=== PATIENT | female | born 1965 | race Caucasian/White ===

== ENCOUNTER 2023-02-25 15:19 | Outpatient (RCR) | payer OTHER, SELFPAY | END 2023-02-25 23:59 | disposition home or self-care (01) | LOC: CRHB 15:19 | PROVIDERS: ATTENDING PHYSICIAN Internal Medicine; FAMILY PHYSICIAN Nurse Practitioner Primary Care | DX: I25.10 Atherosclerotic heart disease of native coronary artery without angina pectoris (principal); Z95.1 Presence of aortocoronary bypass graft | CPT/HCPCS: 93798 ==

== ENCOUNTER → 2023-04-23 15:02 | Outpatient (REF) | payer OTHER, SELFPAY | LOC: WDC 15:02 | PROVIDERS: ATTENDING PHYSICIAN Nurse Practitioner Primary Care | DX: Z12.31 Encounter for screening mammogram for malignant neoplasm of breast (principal) | CPT/HCPCS: 77063; 77067 ==

== ENCOUNTER → 2023-05-02 06:32 | Outpatient (REF) | payer OTHER, SELFPAY | LOC: MRI 06:32 | PROVIDERS: ATTENDING PHYSICIAN Registered Nurse Neuroscience; FAMILY PHYSICIAN Nurse Practitioner Primary Care | DX: M54.2 Cervicalgia (principal) | CPT/HCPCS: 72141 ==

== ENCOUNTER → 2023-05-31 16:05 | Outpatient (REF) | payer OTHER, SELFPAY | LOC: MRI 3T 16:05 | PROVIDERS: ATTENDING PHYSICIAN Registered Nurse Neuroscience; FAMILY PHYSICIAN Internal Medicine | DX: M86.9 Osteomyelitis, unspecified (principal) | CPT/HCPCS: 72141 ==

== ENCOUNTER 2023-07-17 14:47 | Outpatient (RCR) | payer OTHER, SELFPAY | END 2023-07-17 23:59 | disposition home or self-care (01) | LOC: RPT 14:47 | PROVIDERS: ATTENDING PHYSICIAN Registered Nurse Neuroscience; FAMILY PHYSICIAN Internal Medicine | DX: M47.12 Other spondylosis with myelopathy, cervical region (principal); R26.2 Difficulty in walking, not elsewhere classified; R53.1 Weakness; Z73.6 Limitation of activities due to disability | CPT/HCPCS: 97110; 97112; 97162 ==

== ENCOUNTER 2023-08-07 03:19 | Outpatient (RCR) | payer OTHER, SELFPAY | END 2023-08-14 23:59 | disposition home or self-care (01) | LOC: RPT 03:19 | PROVIDERS: ATTENDING PHYSICIAN Registered Nurse Neuroscience; FAMILY PHYSICIAN Internal Medicine | DX: R26.2 Difficulty in walking, not elsewhere classified (principal); R53.1 Weakness; Z73.6 Limitation of activities due to disability; M54.2 Cervicalgia; R26.89 Other abnormalities of gait and mobility | CPT/HCPCS: 97110; 97112 ==

== ENCOUNTER 2023-08-15 17:38 | Inpatient (IN) | payer OTHER, SELFPAY ==
[2023-08-15] VITALS (9 sets, daily range): BP systolic 102–139; BP diastolic 56–78; BMI 31.4; BMI 30.3
[2023-08-15 13:50] LABS: % Basophils 0.6 % (0-2); % Eosinophils 0.1 % (0-6); % Immature Granulocytes 0.6 % (0-0.5); % Monocytes 6.3 % (1.7-9.3); % Neutrophils 73.4 % (42.2-75.2); Absolute Basophils 0.1 10^3/uL (0-0.2); Absolute Immature Granulocytes 0.1 10^3/uL (0-0.05); Absolute Lymphocytes 1.9 10^3/uL (1.2-3.4); Absolute Monocytes 0.6 10^3/uL (0.1-0.6); Absolute Neutrophils 7.5 10^3/uL (1.4-6.5); Hematocrit 36.7 % (37.0-47.0); Hemoglobin 11.8 g/dL (12.0-16.0); Mean Corp Hgb Conc. 32.2 g/dL (33.0-37.0); Mean Corpuscular Volume 90.2 fL (81.0-99.0); Mean Platelet Volume 9.5 fL (7.4-10.4); Nucleated Red Blood Cells % 0 %; Platelet Count 399 10^3/uL (130-400); Red Blood Cell Count 4.07 10^6/uL (4.20-5.40); Red Cell Dist. Width 16.4 % (11.5-14.5); White Blood Cell Count 10.2 10^3/uL (4.8-10.8)
[2023-08-15 14:06] LABS: ALT (SGPT) 17 U/L (0-35); AST (SGOT) 20 U/L (14-36); Albumin 4.3 g/dl (3.5-5.0); Alkaline Phosphatase 86 U/L (38-126); Blood Urea Nitrogen 39 mg/dl (7-17); Calcium 9.5 mg/dl (8.4-10.2); Carbon Dioxide 12 mmol/L (22-30); Chloride 114 mmol/L (98-107); Glucose 97 mg/dl (70-99); Lipase 405 U/L (23-300); Potassium 3.6 mmol/L (3.5-5.1); Sodium 140 mmol/L (135-145); Total Bilirubin 0.5 mg/dl (0.2-1.3); Total Protein 7.6 g/dl (6.3-8.2); eGFR 16.59
--- NOTE | 2023-08-15 15:14 | ED.GENMED ---
History of Present Illness
<Nubia Sterling PA-C - Last Filed: 08/15/23 20:32>
General
Chief Complaint: Abdominal Symptoms
Source: patient
Exam Limitations: none
Time Seen by Provider: 08/15/23 14:46
Nursing documentation reviewed up to this point in time: agreed with
History of Present Illness
History of Present Illness:
58 y/o F with h/o PAF no longer on anticoagulant, NIDDM (controlled off meds), PE in the past
here with n/v/d
started 3 days ago with dairrhea probably 7-8 episodes daily watery foul smelling
couldn't really eat or drink regularly
then this morning started vomiting and vomited 12 times at home
last was this morning 9 am
no meds taken
denies abdominal pain, alcohol abuse, abdomianl distensino, urinary symptoms
does have h/o CKD cr has been up in the 3s but came back down to low 2's as far as she knew
no h/o pancreatitis
Past History
<Nubia Sterling PA-C - Last Filed: 08/15/23 20:32>
Past History
ED Past Medical History: HTN, NIDDM and Other ( morbid obesity, acute renal insufficiency, sciatica, heart failure, PE, A-fib, CAD)
ED Past Surgical History: Cholecystectomy and Gynecological (Hysteectomy)
Patient has exhibited threatening behavior?: No
Social History
Tobacco: Former smoker
Alcohol: None
Drug: None
Personal:
Living: with family
Employment: Employed (Desk job)
Family History
Family History: Other (Noncontributory)
Review of Systems
<WALLY Beard Last Filed: 08/15/23 20:32>
Review of Systems
Allergies reviewed?: Yes
All Other Systems: Not applicable
Phy Exam
<Nubia Sterling PA-C - Last Filed: 08/15/23 20:32>
Physical Exam
Physical Exam:
GENERAL: Alert , in no apparent distress
EYE: pupils equal and reactive
NECK: Supple
ENT: o/p clr, dry
CARDIAC: Regular rate and rhythm .
LUNGS: Clear breath sounds bilaterally, no acute respiratory distress, no wheezes/rales/rhonchi
ABDOMEN: Soft, mild left lower quad tendenress, no r/g, no cvat, normal bowel sounds
NEUROLOGICAL: Alert and oriented, no focal neuro deficits
SKIN: Warm and dry, skin intact.
Bruising left upper chest wall posterior ribs
MUSCULOSKELETAL: No edema, well perfused.
PSYCH: Normal and appropriate interaction.
Course
<Nubia Sterling PA-C - Last Filed: 08/15/23 20:32>
Orders/Labs/Results
Orders:
Orders
08/15/23 13:36
CMP [Comprehensive Metabolic Panel] Urgent
Complete Blood Count/With Diff Urgent
Lipase Urgent
08/15/23 Dinner
Clear Liquid
08/15/23 15:04
0.9% Sodium Chloride 1000 ml [Nss] 1,000 ml IV BOLUS
08/15/23 15:07
Ondansetron Injectable [Zofran] 4 mg IV NOW STA
08/15/23 15:19
Electrocardiogram (*1) Urgent
Reason for Study: Abdominal Pain
CT Chest/abd/pel Wo Iv Cont Urgent
Reason For Exam: left lateral rib bruising, no trauma
EKG- Treatment ONCE
STOOL [C difficile Antigen & Toxins] Urgent
BUSHRA Source: Feces/Stool
Specimen Description:
Stool Culture Urgent
BUSHRA Source: Feces/Stool
Specimen Description:
08/15/23 15:21
Lactic Acid Urgent
Venous Blood Gas Urgent
%Oxygen/Room Air: 21
08/15/23 16:48
Admit/Transfer Patient As Directed
Co-Sign Provider:
Level of Care: Inpatient admission
Assign to:: Telemetry
Physician / Group: Juan M
Diagnosis: IVANIA with met acidosis
Reason for Telemetry: Arrhythmia
Date to Stop Telemetry: 08/18/23
Time to Stop Telemetry: 11:00
Reason for Hospitalization: Above
Expected length of stay greater than two midnights?: Yes
ELOS- Estimated Length of Stay in days: 2
I certify the patient meets the requirements for IP care: Yes
08/15/23 16:55
Code Status As Directed
Resuscitation Status: Full Code
08/15/23 16:58
DX Deep Vein Thrombosis Video Routine
08/15/23 17:52
Urinalysis Reflex To Culture Urgent
Date Specimen was Collected: 08/15/23
Time Specimen was Collected: 15:12
Urine Microscopic Reflex Cult Urgent
Urine Culture Urgent
BUSHRA Source: U
Specimen Description:
Date Specimen was Collected: 08/15/23
Time Specimen was Collected: 15:12
08/15/23 20:00
Aspirin Low Dose EC [Aspir Low (Enteric Coated)] 81 mg PO DAILY
Bupropion(24Hr)Extended Releas [WELLBUTRIN XL (24 hour extended release)] 150 mg PO BID
Carvedilol [Coreg] 3.125 mg PO BID
Dextrose 5%/Water 1000 ml [D5w] 1,000 ml Sodium Bicarbonate 150 meq IV 100 mls/hr
Dextrose 50%-Water [Dextrose 50% Syringe] 12.5 grams IV [id number] PRN
Glucagon [GlucaGen] 1 mg IM PRN PRN
Guaifenesin [Mucinex] 600 mg PO BID
zkarzbfrwdy-jlscixqzx-yefsgmda [Trelegy Ellipta] 1 inh INH R DAILY
08/15/23 20:00
STOOL [C difficile Antigen & Toxins] Routine
BUSHRA Source: Feces/Stool
Specimen Description:
Stool Culture Routine
BUSHRA Source: Feces/Stool
Specimen Description:
Stool For WBC Routine
BUSHRA Source: Feces/Stool
Specimen Description:
Bedside Glucose Monitoring As Directed
Frequency: AC&HS
Additional Instructions:: Change to q6h if pt on TPN, tube feeding or not eating
08/15/23 22:00
Atorvastatin [Lipitor] 80 mg PO HS
Melatonin 5 mg PO HS
Trazodone [Desyrel] 100 mg PO HS
08/16/23 06:00
BMP [Basic Metabolic Panel] IN AM
CBC/With Diff [Complete Blood Count/With Diff] IN AM
Glycohemoglobin (HgbA1c) IN AM
08/16/23 07:30
Insulin Aspart Corrective Low [Novolog Flexpen-Low Resistance] See Protocol SC AC
08/16/23 08:00
Cholecalciferol (Vitamin D3) [VITAMIN D3 (cholecalciferol)] 25 mcg PO DAILY
Clopidogrel Bisulfate [Plavix] 75 mg PO DAILY
Escitalopram Oxalate [Lexapro] 5 mg PO DAILY
Famotidine [Pepcid] 20 mg PO Daily
08/16/23 12:00
Ferrous Sulfate [Feosol] 325 mg PO NOON
Multivitamin [Theragran] 1 tablet PO NOON
08/18/23 11:00
DC Protocol for Telemetry ONCE
Abnormal Lab Results
08/15/23 08/15/23
13:36 15:21
RBC 4.07 L 10^6/uL
(4.20-5.40)
Hgb 11.8 L g/dL
(12.0-16.0)
Hct 36.7 L %
(37.0-47.0)
MCHC 32.2 L g/dL
(33.0-37.0)
RDW 16.4 H %
(11.5-14.5)
Abs Immat Gran (auto) 0.1 H 10^3/uL
(0-0.05)
Absolute Neuts (auto) 7.5 H 10^3/uL
(1.4-6.5)
Immature Gran % 0.6 H %
(0-0.5)
Lymphocytes % 19.0 L %
(20.5-51.1)
VBG pH 7.13 L*
(7.32-7.43)
VBG HCO3 14.3 L mmol/L
(22-27)
Chloride 114 H mmol/L
(98-107)
Carbon Dioxide 12 L* mmol/L
(22-30)
BUN 39 H mg/dl
(7-17)
Creatinine 3.1 H mg/dL
(0.6-1.0)
Lipase 405 H U/L
(23-300)
08/15/23 13:36
08/15/23 13:36
Vital Signs
Initial and Last Documented VS:
Initial Vital Signs
Temp Pulse Resp BP Pulse Ox
98.0 F 97 16 132/78 97
08/15/23 13:29 08/15/23 13:29 08/15/23 13:29 08/15/23 13:29 08/15/23 13:29
Last Documented Vital Signs
Temp Pulse Resp BP Pulse Ox
98.0 F 81 13 125/58 100
08/15/23 13:29 08/15/23 18:45 08/15/23 18:45 08/15/23 18:00 08/15/23 18:45
Rabialt;Rogerio Antonio MD - Last Filed: 08/15/23 19:36>
Orders/Labs/Results
Orders:
Orders
08/15/23 13:36
CMP [Comprehensive Metabolic Panel] Urgent
Complete Blood Count/With Diff Urgent
Lipase Urgent
08/15/23 Dinner
Clear Liquid
08/15/23 15:04
0.9% Sodium Chloride 1000 ml [Nss] 1,000 ml IV BOLUS
08/15/23 15:07
Ondansetron Injectable [Zofran] 4 mg IV NOW STA
08/15/23 15:19
Electrocardiogram (*1) Urgent
Reason for Study: Abdominal Pain
CT Chest/abd/pel Wo Iv Cont Urgent
Reason For Exam: left lateral rib bruising, no trauma
EKG- Treatment ONCE
STOOL [C difficile Antigen & Toxins] Urgent
BUSHRA Source: Feces/Stool
Specimen Description:
Stool Culture Urgent
BUSHRA Source: Feces/Stool
Specimen Description:
08/15/23 15:21
Lactic Acid Urgent
Venous Blood Gas Urgent
%Oxygen/Room Air: 21
08/15/23 16:48
Admit/Transfer Patient As Directed
Co-Sign Provider:
Level of Care: Inpatient admission
Assign to:: Telemetry
Physician / Group: Juan M
Diagnosis: IVANIA with met acidosis
Reason for Telemetry: Arrhythmia
Date to Stop Telemetry: 08/18/23
Time to Stop Telemetry: 11:00
Reason for Hospitalization: Above
Expected length of stay greater than two midnights?: Yes
ELOS- Estimated Length of Stay in days: 2
I certify the patient meets the requirements for IP care: Yes
08/15/23 16:55
Code Status As Directed
Resuscitation Status: Full Code
08/15/23 16:58
DX Deep Vein Thrombosis Video Routine
08/15/23 17:52
Urinalysis Reflex To Culture Urgent
Date Specimen was Collected: 08/15/23
Time Specimen was Collected: 15:12
Urine Microscopic Reflex Cult Urgent
Urine Culture Urgent
BUSHRA Source: U
Specimen Description:
Date Specimen was Collected: 08/15/23
Time Specimen was Collected: 15:12
08/15/23 20:00
Aspirin Low Dose EC [Aspir Low (Enteric Coated)] 81 mg PO DAILY
Bupropion(24Hr)Extended Releas [WELLBUTRIN XL (24 hour extended release)] 150 mg PO BID
Carvedilol [Coreg] 3.125 mg PO BID
Dextrose 5%/Water 1000 ml [D5w] 1,000 ml Sodium Bicarbonate 150 meq IV 100 mls/hr
Dextrose 50%-Water [Dextrose 50% Syringe] 12.5 grams IV [id number] PRN
Glucagon [GlucaGen] 1 mg IM PRN PRN
Guaifenesin [Mucinex] 600 mg PO BID
btqfmjsbajp-zyxgyaxph-bxabyrhc [Trelegy Ellipta] 1 inh INH R DAILY
08/15/23 20:00
STOOL [C difficile Antigen & Toxins] Routine
BUSHRA Source: Feces/Stool
Specimen Description:
Stool Culture Routine
BUSHRA Source: Feces/Stool
Specimen Description:
Stool For WBC Routine
BUSHRA Source: Feces/Stool
Specimen Description:
Bedside Glucose Monitoring As Directed
Frequency: AC&HS
Additional Instructions:: Change to q6h if pt on TPN, tube feeding or not eating
08/15/23 22:00
Atorvastatin [Lipitor] 80 mg PO HS
Melatonin 5 mg PO HS
Trazodone [Desyrel] 100 mg PO HS
08/16/23 06:00
BMP [Basic Metabolic Panel] IN AM
CBC/With Diff [Complete Blood Count/With Diff] IN AM
Glycohemoglobin (HgbA1c) IN AM
08/16/23 07:30
Insulin Aspart Corrective Low [Novolog Flexpen-Low Resistance] See Protocol SC AC
08/16/23 08:00
Cholecalciferol (Vitamin D3) [VITAMIN D3 (cholecalciferol)] 25 mcg PO DAILY
Clopidogrel Bisulfate [Plavix] 75 mg PO DAILY
Escitalopram Oxalate [Lexapro] 5 mg PO DAILY
Famotidine [Pepcid] 20 mg PO Daily
08/16/23 12:00
Ferrous Sulfate [Feosol] 325 mg PO NOON
Multivitamin [Theragran] 1 tablet PO NOON
08/18/23 11:00
DC Protocol for Telemetry ONCE
Abnormal Lab Results
08/15/23 08/15/23
13:36 15:21
RBC 4.07 L 10^6/uL
(4.20-5.40)
Hgb 11.8 L g/dL
(12.0-16.0)
Hct 36.7 L %
(37.0-47.0)
MCHC 32.2 L g/dL
(33.0-37.0)
RDW 16.4 H %
(11.5-14.5)
Abs Immat Gran (auto) 0.1 H 10^3/uL
(0-0.05)
Absolute Neuts (auto) 7.5 H 10^3/uL
(1.4-6.5)
Immature Gran % 0.6 H %
(0-0.5)
Lymphocytes % 19.0 L %
(20.5-51.1)
VBG pH 7.13 L*
(7.32-7.43)
VBG HCO3 14.3 L mmol/L
(22-27)
Chloride 114 H mmol/L
(98-107)
Carbon Dioxide 12 L* mmol/L
(22-30)
BUN 39 H mg/dl
(7-17)
Creatinine 3.1 H mg/dL
(0.6-1.0)
Lipase 405 H U/L
(23-300)
08/15/23 13:36
08/15/23 13:36
Vital Signs
Initial and Last Documented VS:
Initial Vital Signs
Temp Pulse Resp BP Pulse Ox
98.0 F 97 16 132/78 97
08/15/23 13:29 08/15/23 13:29 08/15/23 13:29 08/15/23 13:29 08/15/23 13:29
Last Documented Vital Signs
Temp Pulse Resp BP Pulse Ox
98.0 F 81 13 125/58 100
08/15/23 13:29 08/15/23 18:45 08/15/23 18:45 08/15/23 18:00 08/15/23 18:45
<Nubia Sterling PA-C - Last Filed: 08/15/23 20:32>
MDM/Problems Addressed
Differential Diagnosis Includes:
Gastroenteritis, metabolic acidosis, C. difficile, IVANIA
MDM/Problems Addressed:
58-year-old female with a history of diet-controlled diabetes, former A-fib/paroxysmal A-fib not anticoagulated with diarrhea for several days followed by vomiting today. She has had very little p.o. intake. She feels generally weak. On exam she
has no abdominal tenderness or complaints. She had had no diarrhea today and up until being in the emergency department. We were unable to obtain a sample. Stool studies were sent. She has an IVANIA with a creatinine of 3.2 from her baseline in the
twos. She also has a metabolic acidosis with a pH of 7.1 and a low bicarb. I discussed the case with ED attending who felt that we could hold on bicarb and her fluids at this point and just treat with IV normal saline. Patient had imaging of her
chest abdomen pelvis, she had some bruising on her left ribs which she did not recall trauma for but this was negative. She also had no significant findings on her abdominal CT. Will admit to the hospitalist
<WALLY Beard Last Filed: 08/15/23 20:32>
*Critical Care Note
Total Time (30-74mins, 75-104mins- exclusive of procedures): Not Applicable
ED Attending Note
<Nubia Sterling PA-C - Last Filed: 08/15/23 20:32>
-
Portions of this chart may have been created with voice recognition software.� Occasional wrong word or��sound alike� substitutions may have occurred due to the inherent limitations of voice recognition software.
<Rogerio Antonio MD - Last Filed: 08/15/23 19:36>
ED Attending Note
Patient seen and examined by attending physician: Yes
ED Attending Note:
Patient presents to ED secondary to persistent nausea, vomiting, and nonbloody diarrhea over the past 4 days, along with decreased appetite. Patient denies abdominal pain. Denies fever or chills. Denies coughing. Denies recent travel. Denies
sick contact. However, patient does report attending gathering where they were approximate 150 people, 1 day prior to onset of her symptoms. Patient is wondering whether or not she may have 'caught something'.
Physical Exam
General: no apparent distress, not acutely ill
Neck: supple. no meningeal signs. normal psoterior pharynx
Heart: s1/s2 regular rate and rhythm, no murmur. equal radial pulses.
Lungs: no acute respiratory distress. clear bilaterally
Abdomen: normal bowel sounds. not tender
Neuro: alert and oriented. no focal neurological deficits
Skin: no rash
Psychiatric: well kept. interactive and cooperative
Extremities: no edema. no calf tenderness.
History and exam consistent with likely moderate dehydration, secondary to persistent vomiting and diarrhea. Significant metabolic acidosis noted. Patient will be admitted for further evaluation treatment, including IV hydration. Patient
otherwise remains afebrile, hemodynamically stable, and mentally competent. Will hold off administering sodium bicarb, as underlying dehydration need to be addressed first.
Discharge Plan
Departure
Patient Disposition: Admit
Date of Disposition: 08/15/23
Time of Disposition: 15:36
Admit to: Telemetry
Presentation/result/management discussed w/ accepting MD/DO: Hospitalist
Condition: Fair
Covid-19: Not Applicable
Discharge Problem:
Gastroenteritis, Acidemia
Interventions
Interventions:
*Risk Screen - Suicide Last Done: 08/15/23 14:35
*General Assessment Last Done: 08/15/23 13:29
*Neglect/Abuse Screening Last Done: 08/15/23 14:35
*ED COVID-19 Vaccine History Last Done: 08/15/23 13:29
*Nursing Disposition Last Done: 08/15/23 20:21
BY-[facility]hiwre-Ajemooxpyp Assessment Last Done: 08/15/23 14:35
Discharge Date and Time
Discharge Date/Time: 08/15/23 20:22
[2023-08-15 15:26] LABS: Venous Blood Gas B.E. -14.3 mmol/L (-4 to +4); Venous Blood Gas HCO3 14.3 mmol/L (22-27); Venous Blood Gas pCO2 43 mmHg (35-48); Venous Blood Gas pO2 37 mmHg (30-50)
[2023-08-15 15:28] LABS: Venous Blood Gas pH 7.13 (7.32-7.43)
[2023-08-15] MEDS: ZOFRAN 4 MG IV (15:40)
[2023-08-15 15:42] LABS: Lactic Acid 0.7 mmol/L (0.7-2.0)
[2023-08-15] MEDS: NSS 1000 IV (15:42)
--- NOTE | 2023-08-15 16:59 | HPS.HSE ---
Family Physician
-
Family Physician: Beverly Art
Chief Complaint
-
Persistent diarrhea and weakness.
History of Present Illness
Patient is a 58 years old female with extensive past medical history including CKD stage IV with baseline creatinine around 2, chronic metabolic acidosis, coronary artery disease with bypass surgery October 2022 type 2 diabetes controlled with
diet who presents to the emergency room with diarrhea and generalized fatigue and weakness. Patient describes 2-3 loose bowel movements a day. She denies any hematochezia. She admits to intermittent nausea, although with no emesis. She denies
any abdominal pain, fever, sick contacts, recent travel, recent antibiotics administration or hospitalization.
While in emergency room patient is afebrile and hemodynamically stable
Additional laboratory workup revealed acute on chronic kidney injury with worsening of metabolic acidosis.
Medical History
Past Medical History
Past Medical History: Reports CAD, HTN, Hypercholesterolemia, NIDDM and Other (Chronic kidney disease stage IV)
Past Surgical History: Reports Cardiac and Orthopedic
Social History
Tobacco: Non-smoker
Alcohol: None
Drug: None
Personal:
Living: With Family
Family History
Family History: Not pertinent
Allergies / Home Medications
Allergies reflects when Allergies were last updated in [facility].
Home Medications with original date entered in [facility]
Allergy/Medication List:
Allergies
Allergy/AdvReac Type Severity Reaction Status Date / Time
cephalexin Allergy Unknown Swelling Verified 08/15/23 13:32
lisinopril Allergy Unknown Verified 08/15/23 13:32
metformin AdvReac GI UPSET Verified 08/15/23 13:32
Home Medications
ascorbic acid (vitamin C) 500 mg tablet (Vitamin C) 500 mg PO DAILY Supplement 02/18/21
ferrous sulfate 325 mg (65 mg iron) tablet (FeroSul) 325 mg PO NOON Supplement 02/18/21
carvedilol 3.125 mg tablet 3.125 mg PO BID 09/20/22
melatonin 5 mg tablet 5 mg PO HS 11/19/22
aspirin 81 mg tablet,delayed release 81 mg PO DAILY #90 tabs 11/27/22
atorvastatin 80 mg tablet 80 mg PO HS #90 tabs 11/27/22
clopidogrel 75 mg tablet 75 mg PO DAILY #90 tabs 11/27/22
furosemide 40 mg tablet 40 mg PO DAILY #90 tabs 11/27/22
guaifenesin 600 mg tablet, extended release 12 hr 600 mg PO BID #180 tabs 11/27/22
multivitamin with folic acid 400 mcg tablet (Tab-A-Prashant) 1 tab PO NOON #90 tabs 11/27/22
cholecalciferol (vitamin D3) 25 mcg (1,000 unit) tablet (Vitamin D3) 25 mcg PO DAILY #90 tabs 11/28/22
famotidine 20 mg tablet 20 mg PO Daily #90 tabs 11/28/22
azithromycin 250 mg tablet 250 mg PO Q48H 08/15/23
benzonatate 100 mg capsule 100 mg PO BIDPRN PRN cough 08/15/23
bupropion HCl 150 mg 24 hr tablet, extended release (Wellbutrin XL) 150 mg PO BID 08/15/23
escitalopram oxalate 5 mg tablet (Lexapro) 5 mg PO DAILY 08/15/23
finerenone 10 mg tablet (Kerendia) 10 mg PO DAILY 08/15/23
fluticasone fur. 100 mcg-umeclid 62.5 mcg-vilant 25 mcg inhalat.powder (Trelegy Ellipta) 1 inh inhalation R DAILY 08/15/23
sodium bicarbonate 325 mg tablet 325 mg PO DAILY 08/15/23
trazodone 50 mg tablet 100 mg PO HS 08/15/23
Review of Systems
-
A 12 point ROS was completed and negative except as noted: Yes
Abdomen/GI: Reports See HPI
Physical Exam
Vital Signs
Vital Signs
Temp Pulse Resp BP Pulse Ox
98.0 F 83 14 139/69 99
08/15/23 13:29 08/15/23 15:30 08/15/23 15:30 08/15/23 15:00 08/15/23 15:00
Physical Exam
General: Well Developed, Well Nourished and No Apparent Distress
HEENT: NormoCephalic, Moist mucous membranes and Atraumatic
Respiratory: Clear
Cardiac: S1/S2 and Regular Rhythm; No Murmur or Rub
GI: Soft, Non Tender, Non Distended and Normal Bowel Sounds; No Organomegaly
Rectal: Deferred by Provider
Musculoskeletal: No Clubbing, No Cyanosis and No Edema
Skin: No Rash
Neuro: Nonfocal/grossly intact
Laboratory Results
-
08/15/23 13:36
08/15/23 13:36
Laboratory Results
Lactic Acid 0.7 mmol/L (0.7-2.0) 08/15/23 15:21
Total Bilirubin 0.5 mg/dl (0.2-1.3) 08/15/23 13:36
AST 20 U/L (14-36) 08/15/23 13:36
ALT 17 U/L (0-35) 08/15/23 13:36
Alkaline Phosphatase 86 U/L (38-126) 08/15/23 13:36
Lipase 405 U/L (23-300) H 08/15/23 13:36
Data Reviewed
-
Lab Data: Labs Reviewed by me
Impression/Plan
-
IMPRESSION:
58 years old female with history of CKD stage IV baseline creatinine 1.7�2, chronic metabolic acidosis presents with acute onset of diarrhea and found to have acute on chronic kidney injury and worsening metabolic acidosis
IVANIA on CKD stage IV.
Worsening metabolic acidosis.
Acute onset of diarrhea, suspected viral gastroenteritis
Conditions prior to admission:
CKD stage IV baseline creatinine 1.8-2
Chronic metabolic acidosis on oral bicarb at home.
CAD.
� Status post CABG x 4 at [facility] 11/10
Status post cervical spine surgery at [facility] .
Nonischemic cardiomyopathy with preserved/recovered EF/mild to moderate AR.
Anemia of chronic disease
Essential hypertension
Dyslipidemia
Diabetes mellitus type 2 currently diet controlled.
COPD without exacerbation.
History of DVT, currently not on anticoagulation
Albuminuria.
Anxiety/depression.
PLAN:
Acute on chronic kidney injury with creatinine up to 3.1
Worsening of increased anion gap/normal gap metabolic acidosis most likely combination of GI losses with diarrhea as well as IVANIA and bicarb regeneration
Bladder scan, although less likely retention.
Start IV fluids with bicarbonate
Avoid hypotension.
Hold Lasix and Kerendia for now
Consider nephrology consultation
Acute onset of diarrhea with nausea
Patient denies any hematochezia.
Afebrile.
Benign abdominal examination.
Suspect acute viral gastroenteritis less likely bacterial infection, although possible.
CT scan of the abdomen and pelvis pending.
Full liquid diet.
Stool for C. difficile/stool culture/stool for WBC.
If persistent consider gastroenterology consultation and additional workup
CAD/hypertension/dyslipidemia
Status post CABG x 4 11/10
Continue DAPT with aspirin and Plavix
Continue statin
Continue Coreg, although monitor blood pressure closely avoiding hypotension
Type 2 diabetes currently controlled by diet
Update hemoglobin A1c.
Basal bolus protocol.
Carbohydrate controlled diet, currently on full liquid diet given above issues
Anxiety/depression
Continue trazodone, Wellbutrin
DVT prophylaxis: Heparin
Full code.
[2023-08-15 17:58] LABS: Urine Albumin Trace (Neg - Trace); Urine Bilirubin Negative (Negative); Urine Character Clear (Clear); Urine Color Yellow; Urine Glucose Negative (Negative); Urine Ketone Negative (Negative); Urine Leukocyte 1+ (Negative); Urine Nitrite Negative (Negative); Urine Occult Blood Trace (Negative); Urine Urobilinogen Negative (Neg - 1+)
[2023-08-15 18:07] LABS: Urine Red Blood Cell 0-2 /HPF (0-2)
[2023-08-15 18:08] LABS: Urine Bacteria Few (Negative)
[2023-08-15] MEDS: ASPIR LOW (ENTERIC COATED) 81 MG PO (20:50)
[2023-08-15] MEDS: LIPITOR 80 MG PO (20:50)
[2023-08-15] MEDS: COREG 3.125 MG PO (20:50)
[2023-08-15] MEDS: MUCINEX 600 MG PO (20:50)
[2023-08-15] MEDS: HEPARIN 5000 UNITS SC (20:51)
[2023-08-15] MEDS: DESYREL 100 MG PO (20:52)
[2023-08-15] MEDS: SODIUM BICARBONATE 1150 MEQ IV (21:30)
--- NOTE | 2023-08-15 21:30 | PTCARENOTE ---
no delay received. aa0x3. pt ambulated from stretcher to bed in rm 331 w/o issue. d5w/ bicarb @100cc/hr. vss. nsr. call hernandez in reach. will monitor.
[2023-08-15] MEDS: WELLBUTRIN XL (24 hour extended release) PO (22:04)
[2023-08-15] MEDS: WELLBUTRIN XL (24 hour extended release) 150 MG PO (22:58)
[2023-08-15] MEDS: MELATONIN 5 MG PO (22:58)
[2023-08-16] VITALS (7 sets, daily range): BP systolic 110–124; BP diastolic 53–66; BMI 30.3
--- NOTE | 2023-08-16 02:00 | PTCARENOTE ---
pt had two second pause. hr down to 38. pt aaox3 and asymptomatic. social insurance analyst aware. ekg obtained. hr back into 70's in nsr. will monitor.
[2023-08-16 06:32] LABS: % Basophils 0.4 % (0-2); % Eosinophils 1.3 % (0-6); % Immature Granulocytes 0.7 % (0-0.5); % Lymphocytes 25.5 % (20.5-51.1); % Monocytes 10.5 % (1.7-9.3); % Neutrophils 61.6 % (42.2-75.2); Absolute Eosinophils 0.1 10^3/uL (0-0.7); Absolute Immature Granulocytes 0.1 10^3/uL (0-0.05); Absolute Lymphocytes 1.9 10^3/uL (1.2-3.4); Absolute Monocytes 0.8 10^3/uL (0.1-0.6); Absolute Neutrophils 4.6 10^3/uL (1.4-6.5); Hematocrit 32.4 % (37.0-47.0); Hemoglobin 10.6 g/dL (12.0-16.0); Mean Corp Hgb Conc. 32.7 g/dL (33.0-37.0); Mean Corpuscular Volume 85.5 fL (81.0-99.0); Mean Platelet Volume 9.6 fL (7.4-10.4); Nucleated Red Blood Cells % 0 %; Platelet Count 325 10^3/uL (130-400); Red Blood Cell Count 3.79 10^6/uL (4.20-5.40); Red Cell Dist. Width 16.1 % (11.5-14.5); White Blood Cell Count 7.4 10^3/uL (4.8-10.8)
[2023-08-16 06:54] LABS: Blood Urea Nitrogen 37 mg/dl (7-17); Calcium 9.1 mg/dl (8.4-10.2); Carbon Dioxide 16 mmol/L (22-30); Chloride 114 mmol/L (98-107); Estimated Creatinine Clearance 20 ml/min; Glucose 95 mg/dl (70-99); Potassium 2.7 mmol/L (3.5-5.1); Sodium 140 mmol/L (135-145); eGFR 18.75
[2023-08-16 08:58] LABS: Glucose - Point of Care 112 mg/dl (70-99)
[2023-08-16] MEDS: COREG 3.125 MG PO ×2 (09:00→20:38)
[2023-08-16] MEDS: ASPIR LOW (ENTERIC COATED) 81 MG PO (09:00)
[2023-08-16] MEDS: MUCINEX 600 MG PO ×2 (09:00→20:38)
[2023-08-16] MEDS: WELLBUTRIN XL (24 hour extended release) 150 MG PO ×2 (09:00→20:39)
[2023-08-16] MEDS: NOVOLOG FLEXPEN-LOW RESISTANCE SC (09:00)
[2023-08-16] MEDS: LEXAPRO 5 MG PO (09:00)
[2023-08-16] MEDS: PLAVIX 75 MG PO (09:04)
[2023-08-16] MEDS: HEPARIN 5000 UNITS SC ×2 (09:04→20:39)
[2023-08-16] MEDS: VITAMIN D3 (cholecalciferol) 25 MCG PO (09:05)
[2023-08-16] MEDS: SODIUM BICARBONATE 1150 MEQ IV ×2 (09:39→21:51)
[2023-08-16] MEDS: KCL 40 MEQ PO (10:08)
[2023-08-16] MEDS: KCL 270 MEQ IV (10:49)
[2023-08-16 10:54] LABS: Glycohemoglobin (HgbA1c) 5.8 % (4.0-5.6)
[2023-08-16] MEDS: FEOSOL 325 MG PO (11:30)
[2023-08-16] MEDS: THERAGRAN 1 TABLET PO (11:33)
[2023-08-16 12:14] LABS: Glucose - Point of Care 183 mg/dl (70-99)
--- NOTE | 2023-08-16 12:38 | W.CON.NEPH ---
Consultation
-
Date/Time Consultation Requested: August 16, 2023 11 AM
Date/Time Consultation Performed: August 16, 2023 12:30 PM
Requesting Provider: Dr. Mcgowan
Performing Provider: Dr. Rose
Reason for Consultation: Acute kidney injury, metabolic acidosis, hypokalemia
Medical History
-
Chief Complaint: Nausea vomiting diarrhea
History of Present Illness:
This is a 58-year-old female who is well-known to our office and follows with Dr. Arambula. She was last seen in this month. She has known chronic kidney disease stage IV with baseline creatinine around 2.0. She does have metabolic acidosis and
x-ray bicarbonate as outpatient. She has diabetes mellitus type 2 though currently not on medications but does take Kerendia for diabetic kidney disease. She has known coronary disease on antiplatelet therapy. She is on a multidrug regimen for
hypertension which is controlled. Beginning on Saturday she began developing voluminous diarrhea 4-5 times per day. On this had improved but then she began with vomiting 20 times per day. Because of this she came to the emergency room.
There is no blood in the vomiting or diarrhea and she has no abdominal pain. At the time of admission she was noted to have acute kidney injury with a creatinine of 3.1 and developed hypokalemia. She also has significant metabolic acidosis.
Past Medical History
Coronary disease
Hypertension
CKD 4, 2.1 baseline
Hyperlipidemia
Diabetes mellitus type 2 CABG
Asthma
DVT
Depression/anxiety
IVANIA with dialysis in the past
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
Aortic regurgitation
Social History
Tobacco: Former Smoker
Alcohol: None
Family History
Family History: Not Pertinent
Allergies / Home Medications
Allergy/AdvReac Type Severity Reaction Status Date / Time
cephalexin Allergy Swelling Verified 08/15/23 20:21
lisinopril Allergy Unknown Verified 08/15/23 13:32
metformin Allergy GI UPSET Verified 08/15/23 20:21
�Medication �Instructions �Recorded �Confirmed �Type
ascorbic acid (vitamin C) 500 mg 500 mg PO DAILY Supplement 02/18/21 08/15/23 History
tablet (Vitamin C)
ferrous sulfate 325 mg (65 mg 325 mg PO NOON Supplement 02/18/21 08/15/23 History
iron) tablet (FeroSul)
carvedilol 3.125 mg tablet 3.125 mg PO BID Heart 09/20/22 08/15/23 History
Disease/Condition
melatonin 5 mg tablet 5 mg PO HS Sleep 11/19/22 08/15/23 History
aspirin 81 mg tablet,delayed 81 mg PO DAILY #90 tabs 11/27/22 08/15/23 Rx
release
atorvastatin 80 mg tablet 80 mg PO HS #90 tabs 11/27/22 08/15/23 Rx
clopidogrel 75 mg tablet 75 mg PO DAILY #90 tabs 11/27/22 08/15/23 Rx
furosemide 40 mg tablet 40 mg PO DAILY #90 tabs 11/27/22 08/15/23 Rx
guaifenesin 600 mg tablet, 600 mg PO BID #180 tabs 11/27/22 08/15/23 Rx
extended release 12 hr
multivitamin with folic acid 400 1 tab PO NOON #90 tabs 11/27/22 08/15/23 Rx
mcg tablet (Tab-A-Prashant)
cholecalciferol (vitamin D3) 25 25 mcg PO DAILY #90 tabs 11/28/22 08/15/23 Rx
mcg (1,000 unit) tablet (Vitamin
D3)
famotidine 20 mg tablet 20 mg PO Daily #90 tabs 11/28/22 08/15/23 Rx
azithromycin 250 mg tablet 250 mg PO Q48H Infection 08/15/23 08/15/23 History
benzonatate 100 mg capsule 100 mg PO BIDPRN PRN cough 08/15/23 08/15/23 History
bupropion HCl 150 mg 24 hr tablet, 150 mg PO BID Depression 08/15/23 08/15/23 History
extended release (Wellbutrin XL)
escitalopram oxalate 5 mg tablet 5 mg PO DAILY Depression 08/15/23 08/15/23 History
(Lexapro)
finerenone 10 mg tablet (Kerendia) 10 mg PO DAILY Kidney and diabetes 08/15/23 08/15/23 History
fluticasone fur. 100 mcg-umeclid 1 inh inhalation R DAILY 08/15/23 08/15/23 History
62.5 mcg-vilant 25 mcg Lung/Breathing Issues
inhalat.powder (Trelegy Ellipta)
sodium bicarbonate 325 mg tablet 325 mg PO DAILY Electrolyte 08/15/23 08/15/23 History
Repletion
trazodone 50 mg tablet 100 mg PO HS Sleep 08/15/23 08/15/23 History
Review of Systems
-
Diarrhea improved, vomiting improved. No abdominal pain.
All other systems: Negative unless noted
Physical Exam
Vital Signs
Vital Signs
Temp Pulse Resp BP Pulse Ox
98.4 F 79 16 119/60 99
08/16/23 07:00 08/16/23 09:00 08/16/23 07:00 08/16/23 09:00 08/16/23 07:00
Lab Results
WBC 7.4 10^3/uL (4.8-10.8) 08/16/23 05:50
RBC 3.79 10^6/uL (4.20-5.40) L 08/16/23 05:50
Hgb 10.6 g/dL (12.0-16.0) L 08/16/23 05:50
Hct 32.4 % (37.0-47.0) L 08/16/23 05:50
Plt Count 325 10^3/uL (130-400) 08/16/23 05:50
Sodium 140 mmol/L (135-145) 08/16/23 05:50
Potassium 2.7 mmol/L (3.5-5.1) L* 08/16/23 05:50
Chloride 114 mmol/L (98-107) H 08/16/23 05:50
Carbon Dioxide 16 mmol/L (22-30) L 08/16/23 05:50
BUN 37 mg/dl (7-17) H 08/16/23 05:50
Creatinine 2.8 mg/dL (0.6-1.0) H 08/16/23 05:50
eGFR 18.75 08/16/23 05:50
Glucose 95 mg/dl (70-99) 08/16/23 05:50
Calcium 9.1 mg/dl (8.4-10.2) 08/16/23 05:50
Albumin 4.3 g/dl (3.5-5.0) 08/15/23 13:36
Physical Exam
Patient is awake alert oriented and in no distress. Mood and affect were pleasant, insight and judgment were good. Pupils are equal round and reactive to light, extraocular movements are intact, sclera were anicteric. Hearing was normal, ears and
nose are intact. Oropharynx was clear. Neck was supple with trachea midline and no thyromegaly. Heart was regular rate and rhythm without rubs. Lower extremities without edema. Lungs were clear to auscultation bilaterally and with normal
excursion. Abdomen was soft, nontender, with normal active bowel sounds, and no hepatosplenomegaly. Skin was without rash and with normal turgor.
Data Reviewed
-
CT Scan: Report Reviewed by me (CT of the chest abdomen and pelvis without contrast on August 15, 2023 shows bronchiolitis, no acute disease in the abdomen)
Medical Tests (Nuc Med, Echo etc): Image Personally Visualized and interpreted (EKG on August 16, 2023 by my read shows normal sinus rhythm)
Labs: Labs Reviewed by me (Sodium 140, potassium 2.7, bicarbonate 16, BUN 37, creatinine 2.8, A1c 5.8, WBC 7.4, hemoglobin 10.6)
Assessment/Plan
-
Assessment
Acute kidney injury
CKD 4 (2.1)
Metabolic acidosis
Hypertension
Nausea vomiting diarrhea
Aortic regurgitation
Diabetes mellitus type 2
Hypokalemia
Plan
IV fluids with bicarbonate
Continue oral bicarbonate
Aggressive potassium replacement
Follow BMP
Follow lipase
[2023-08-16] MEDS: NOVOLOG FLEXPEN-LOW RESISTANCE 1 UNITS SC (14:50)
--- NOTE | 2023-08-16 15:25 | W.PN.HOSP.TC ---
Today's Communication/Plan
-
Renal function and metabolic acidosis improving with IV hydration and bicarbonate.
Continue IV fluids for another 24 hours
Replete potassium
Advance diet
Follow rest of the stool cultures
Assessment / Plan
Assessment / Plan
IMPRESSION:
58 years old female with history of CKD stage IV baseline creatinine 1.7�2, chronic metabolic acidosis presents with acute onset of diarrhea and found to have acute on chronic kidney injury and worsening metabolic acidosis
IVANIA on CKD stage IV.
Worsening metabolic acidosis.
Hypokalemia
Acute onset of diarrhea, suspected viral gastroenteritis
Conditions prior to admission:
CKD stage IV baseline creatinine 1.8-2
Chronic metabolic acidosis on oral bicarb at home.
CAD.
� Status post CABG x 4 at [facility] 11/10
Status post cervical spine surgery at [facility] .
Nonischemic cardiomyopathy with preserved/recovered EF/mild to moderate AR.
Anemia of chronic disease
Essential hypertension
Dyslipidemia
Diabetes mellitus type 2 currently diet controlled.
COPD without exacerbation.
History of DVT, currently not on anticoagulation
Albuminuria.
Anxiety/depression.
PLAN:
Acute on chronic kidney injury with creatinine up to 3.1
Worsening of increased anion gap/normal gap metabolic acidosis most likely combination of GI losses with diarrhea as well as IVANIA and bicarb regeneration
Renal function improved with IV fluids and bicarbonate
Continue IV bicarbonate for another 24 hours
Replete potassium
Avoid hypotension.
Hold Lasix and Kerendia for now
Acute onset of diarrhea with nausea
Patient denies any hematochezia.
Afebrile.
Benign abdominal examination.
Suspect acute viral gastroenteritis less likely bacterial infection, although possible.
CT scan of the abdomen and pelvis without acute abnormalities
Stool negative for C. difficile and norovirus.
Cultures pending
Monitor off antibiotics
With improved diarrhea, advance to regular diet.
CAD/hypertension/dyslipidemia
Status post CABG x 4 11/10
Continue DAPT with aspirin and Plavix
Continue statin
Continue Coreg, although monitor blood pressure closely avoiding hypotension
Type 2 diabetes currently controlled by diet
Update hemoglobin A1c.
Basal bolus protocol.
Carbohydrate controlled diet, currently on full liquid diet given above issues
Anxiety/depression
Continue trazodone, Wellbutrin
DVT prophylaxis: Heparin
Full code.
Anticipated Discharge: 24 - 48 hours
Subjective/Interval History
-
Date of Service: August 16, 2023
Objective Data
-
Labs:
Laboratory Results
08/16/23
05:50
WBC 7.4
Hgb 10.6 L
Hct 32.4 L
Plt Count 325
Sodium 140
Potassium 2.7 L*
Chloride 114 H
Carbon Dioxide 16 L
BUN 37 H
Creatinine 2.8 H
Glucose 95
Calcium 9.1
Vital Signs:
Vital Signs
Temp Pulse Resp BP Pulse Ox
98.5 F 82 16 113/66 99
08/16/23 11:30 08/16/23 11:30 08/16/23 11:30 08/16/23 11:30 08/16/23 11:30
I&O
08/15/23 08/16/23 08/17/23
06:59 06:59 06:59
Intake Total 1000 / 1000
Balance 1000 / 1000
Physical Exam
-
General: Well Developed and No Apparent Distress
HEENT: Normocephalic, Atraumatic and Moist Mucous Membranes
Respiratory: Clear to Auscultation
Cardiac: Regular Rhythm and S1/S2; Negative Murmur, Rub or Gallop
GI: Soft, Nontender, Nondistended and Normal Bowel Sounds; Negative Organomegaly
Rectal: Deferred by Provider
Musculoskeletal: No Clubbing, No Cyanosis and No Edema
Skin: Negative Rash
Neuro: Nonfocal/Grossly Intact
[2023-08-16 17:45] LABS: Glucose - Point of Care 200 mg/dl (70-99)
[2023-08-16] MEDS: NOVOLOG FLEXPEN-LOW RESISTANCE 2 UNITS SC (18:06)
[2023-08-16 21:22] LABS: Glucose - Point of Care 153 mg/dl (70-99)
[2023-08-16] MEDS: KCL 20 MEQ PO (21:52)
[2023-08-16] MEDS: DESYREL 100 MG PO (21:52)
[2023-08-16] MEDS: LIPITOR 80 MG PO (21:52)
[2023-08-16] MEDS: MELATONIN 5 MG PO (21:52)
[2023-08-17 02:46] VITALS: BP 110/61
[2023-08-17] MEDS: ROBITUSSIN 100 MG PO (03:36)
[2023-08-17 06:00] VITALS: BMI 29.4
[2023-08-17 07:00] VITALS: BP 130/60
[2023-08-17 07:18] LABS: Blood Urea Nitrogen 38 mg/dl (7-17); Calcium 8.7 mg/dl (8.4-10.2); Carbon Dioxide 30 mmol/L (22-30); Chloride 105 mmol/L (98-107); Estimated Creatinine Clearance 23 ml/min; Glucose 120 mg/dl (70-99); Magnesium 1.9 mg/dl (1.6-2.3); Potassium 3.3 mmol/L (3.5-5.1); Sodium 140 mmol/L (135-145); eGFR 22.56
[2023-08-17] MEDS: SODIUM BICARBONATE 650 MG PO (07:50)
[2023-08-17] MEDS: ASPIR LOW (ENTERIC COATED) 81 MG PO (07:50)
[2023-08-17] MEDS: COREG 3.125 MG PO (07:50)
[2023-08-17] MEDS: LEXAPRO 5 MG PO (07:50)
[2023-08-17] MEDS: VITAMIN D3 (cholecalciferol) 25 MCG PO (07:50)
[2023-08-17] MEDS: WELLBUTRIN XL (24 hour extended release) 150 MG PO (07:50)
[2023-08-17] MEDS: PLAVIX 75 MG PO (07:50)
[2023-08-17] MEDS: MUCINEX 600 MG PO (07:50)
[2023-08-17] MEDS: HEPARIN 5000 UNITS SC (07:52)
[2023-08-17 08:05] LABS: Glucose - Point of Care 160 mg/dl (70-99)
[2023-08-17] MEDS: SODIUM BICARBONATE 1150 MEQ IV (09:31)
[2023-08-17] MEDS: NOVOLOG FLEXPEN-LOW RESISTANCE 1 UNITS SC (09:31)
[2023-08-17 11:00] VITALS: BP 130/51
--- NOTE | 2023-08-17 11:30 | W.PN.HOSP.TC ---
Today's Communication/Plan
-
Oral potassium
Discharge
Assessment / Plan
Assessment / Plan
Gen-AAOx3, NAD
HEENT-NC, AT, anicteric, clear oral mm
Neck-supple
CV-reg, no M, +S1/S2
Lungs-clear B/L
Abd-soft, NT, ND
Ext-no edema
Musculoskeletal-no cyanosis, clubbing
Skin-warm and dry
Neuro-grossly non-focal
Psych-calm, cooperative
IMPRESSION:
58 years old female with history of CKD stage IV baseline creatinine 1.7�2, chronic metabolic acidosis presents with acute onset of diarrhea and found to have acute on chronic kidney injury and worsening metabolic acidosis
IVANIA on CKD stage IV.
Worsening metabolic acidosis.
Hypokalemia
Acute onset of diarrhea, suspected viral gastroenteritis
Conditions prior to admission:
CKD stage IV baseline creatinine 1.8-2
Chronic metabolic acidosis on oral bicarb at home.
CAD.
� Status post CABG x 4 at [facility] 11/10
Status post cervical spine surgery at [facility] .
Nonischemic cardiomyopathy with preserved/recovered EF/mild to moderate AR.
Anemia of chronic disease
Essential hypertension
Dyslipidemia
Diabetes mellitus type 2 currently diet controlled.
COPD without exacerbation.
History of DVT, currently not on anticoagulation
Albuminuria.
Anxiety/depression.
PLAN:
IVANIA on CKD 4 -IVANIA improving. Etiology was volume depletion due to acute gastroenteritis. Hypokalemia improving. Continue repletion.
Worsening of increased anion gap/normal gap metabolic acidosis most likely combination of GI losses with diarrhea as well as IVANIA and bicarb regeneration
Renal function improved with IV fluids and bicarbonate
Replete potassium
Avoid hypotension.
Hold Lasix and Kerendia for now
Acute gastroenteritis -improved. Stool studies pending.
Patient denies any hematochezia.
Afebrile.
Benign abdominal examination.
Suspect acute viral gastroenteritis less likely bacterial infection, although possible.
CT scan of the abdomen and pelvis without acute abnormalities
CAD/hypertension/dyslipidemia
Status post CABG x 4 11/10
Continue DAPT with aspirin and Plavix
Continue statin
Continue Coreg, although monitor blood pressure closely avoiding hypotension
Type 2 diabetes currently controlled by diet. Hemoglobin A1c 5.8%.
Basal bolus protocol.
Carbohydrate controlled diet, currently on full liquid diet given above issues
Anxiety/depression
Continue trazodone, Wellbutrin
DVT prophylaxis: Heparin
Full code.
Dispo -medically stable for discharge. BMP on Saturday. Discussed with nephrology Dr. Rose.
32 minutes spent in discharge process.
Anticipated Discharge: Today
Subjective/Interval History
-
Date of Service: August 17, 2023
Patient seen and examined. Diarrhea resolved. Feeling better.
Objective Data
-
Labs:
Laboratory Results
08/17/23
06:13
Sodium 140
Potassium 3.3 L
Chloride 105
Carbon Dioxide 30
BUN 38 H
Creatinine 2.4 H
Glucose 120 H
Calcium 8.7
Vital Signs:
Vital Signs
Temp Pulse Resp BP Pulse Ox
98.1 F 81 18 130/51 98
08/17/23 11:00 08/17/23 11:00 08/17/23 11:00 08/17/23 11:00 08/17/23 11:00
I&O
08/16/23 08/17/23 08/18/23
06:59 06:59 06:59
Intake Total 1000 / 1000 420 / 420
Balance 1000 / 1000 420 / 420
Review of Systems
-
History Source: Patient
All other systems: Reviewed and negative
--- NOTE | 2023-08-17 11:44 | W.DS.TRANS ---
DC Summary - Trust Operations Assistant
-
Discharge Instructions:
Sleep Apnea Risk Intermediate
Discharge Diagnosis/Procedures Acute kidney injury, acute gastroenteritis
Diet Low Sodium
Activity As tolerated
Driving Restrictions As prior to admission
Bathing Restrictions None
Blood Work BMP on Saturday
Instructions:
Stand-Alone Forms:
Changes to Home Medications: Yes
Discharge Medications:
DC Medications w/original date entered in wireWAX
ascorbic acid (vitamin C) 500 mg tablet (Vitamin C) 500 mg PO DAILY Supplement 02/18/21
ferrous sulfate 325 mg (65 mg iron) tablet (FeroSul) 325 mg PO NOON Supplement 02/18/21
carvedilol 3.125 mg tablet 3.125 mg PO BID Heart Disease/Condition 09/20/22
melatonin 5 mg tablet 5 mg PO HS Sleep 11/19/22
aspirin 81 mg tablet,delayed release 81 mg PO DAILY #90 tabs 11/27/22
atorvastatin 80 mg tablet 80 mg PO HS #90 tabs 11/27/22
clopidogrel 75 mg tablet 75 mg PO DAILY #90 tabs 11/27/22
furosemide 40 mg tablet 40 mg PO DAILY #90 tabs 11/27/22
guaifenesin 600 mg tablet, extended release 12 hr 600 mg PO BID #180 tabs 11/27/22
multivitamin with folic acid 400 mcg tablet (Tab-A-Prashant) 1 tab PO NOON #90 tabs 11/27/22
cholecalciferol (vitamin D3) 25 mcg (1,000 unit) tablet (Vitamin D3) 25 mcg PO DAILY #90 tabs 11/28/22
azithromycin 250 mg tablet 250 mg PO Q48H Infection 08/15/23
benzonatate 100 mg capsule 100 mg PO BIDPRN PRN cough 08/15/23
bupropion HCl 150 mg 24 hr tablet, extended release (Wellbutrin XL) 150 mg PO BID Depression 08/15/23
escitalopram oxalate 5 mg tablet (Lexapro) 5 mg PO DAILY Depression 08/15/23
finerenone 10 mg tablet (Kerendia) 10 mg PO DAILY Kidney and diabetes 08/15/23
fluticasone fur. 100 mcg-umeclid 62.5 mcg-vilant 25 mcg inhalat.powder (Trelegy Ellipta) 1 inh inhalation R DAILY Lung/Breathing Issues 08/15/23
sodium bicarbonate 325 mg tablet 325 mg PO DAILY Electrolyte Repletion 08/15/23
trazodone 50 mg tablet 100 mg PO HS Sleep 08/15/23
famotidine 20 mg tablet 20 mg PO Q48H #0 tabs 08/17/23
potassium chloride 20 mEq tablet,extended release 20 meq PO DAILY #3 tabs 08/17/23
Home Medication Changes
Hold furosemide
Hold finerenone
Pending Results: No
[2023-08-17] MEDS: FEOSOL 325 MG PO (11:56)
[2023-08-17] MEDS: THERAGRAN 1 TABLET PO (11:56)
[2023-08-17] MEDS: KCL 40 MEQ PO (11:56)
== END 2023-08-17 12:48 | disposition home or self-care (01) | DRG 392 ==
LOC: 3 WEST ACU 17:38
PROVIDERS: Emergency Medicine; Physician Assistant; ADMITTING PHYSICIAN Internal Medicine; ATTENDING PHYSICIAN Hospitalist; CONSULT PHYSICIAN Specialist; EMERGENCY PHYSICIAN Emergency Medicine; FAMILY PHYSICIAN Nurse Practitioner Primary Care
DX: A08.4 Viral intestinal infection, unspecified (principal); N17.9 Acute kidney failure, unspecified; E87.20 Acidosis, unspecified; I42.8 Other cardiomyopathies; I50.32 Chronic diastolic (congestive) heart failure; I13.0 Hypertensive heart and chronic kidney disease with heart failure and stage 1 through stage 4 chronic kidney disease, or unspecified chronic kidney disease; N18.4 Chronic kidney disease, stage 4 (severe); I48.0 Paroxysmal atrial fibrillation; E86.0 Dehydration; E11.22 Type 2 diabetes mellitus with diabetic chronic kidney disease; F41.9 Anxiety disorder, unspecified; I35.1 Nonrheumatic aortic (valve) insufficiency; F32.A Depression, unspecified; E87.6 Hypokalemia; D63.8 Anemia in other chronic diseases classified elsewhere; J44.9 Chronic obstructive pulmonary disease, unspecified; I25.10 Atherosclerotic heart disease of native coronary artery without angina pectoris; Z95.1 Presence of aortocoronary bypass graft; Z88.1 Allergy status to other antibiotic agents; Z88.8 Allergy status to other drugs, medicaments and biological substances; Z79.82 Long term (current) use of aspirin; Z79.02 Long term (current) use of antithrombotics/antiplatelets; Z79.51 Long term (current) use of inhaled steroids; Z86.711 Personal history of pulmonary embolism; Z87.891 Personal history of nicotine dependence; Z86.718 Personal history of other venous thrombosis and embolism
CPT/HCPCS: 71250; 74176; 80048; 80053; 81003; 81015; 82805; 82962; 83036; 83605; 83690; 83735; 85025; 87045; 87046; 87070; 87086; 87324; 87427; 87449; 89055; 93005; 96361; 96374; 99285

== ENCOUNTER → 2023-11-05 16:21 | Outpatient (REF) | payer OTHER, SELFPAY | LOC: PAVMRI 16:21 | PROVIDERS: ATTENDING PHYSICIAN Physician Assistant Medical; FAMILY PHYSICIAN Nurse Practitioner Primary Care | DX: M54.12 Radiculopathy, cervical region (principal); M54.16 Radiculopathy, lumbar region | CPT/HCPCS: 72141; 72148 ==

== ENCOUNTER → 2023-11-06 14:54 | Outpatient (REF) | payer OTHER, SELFPAY | LOC: RCS 14:54 | PROVIDERS: ATTENDING PHYSICIAN Internal Medicine; FAMILY PHYSICIAN Nurse Practitioner Primary Care | DX: I25.10 Atherosclerotic heart disease of native coronary artery without angina pectoris (principal); I50.32 Chronic diastolic (congestive) heart failure; I35.1 Nonrheumatic aortic (valve) insufficiency; I35.0 Nonrheumatic aortic (valve) stenosis; Z95.1 Presence of aortocoronary bypass graft | CPT/HCPCS: 93306 ==

== ENCOUNTER 2024-06-29 18:32 | Inpatient (IN) | payer OTHER, SELFPAY ==
[2024-06-29 12:06] VITALS: BP 149/69
[2024-06-29 12:26] LABS: % Basophils 0.3 % (0-2); % Eosinophils 0.2 % (0-6); % Immature Granulocytes 0.4 % (0-0.5); % Lymphocytes 5.6 % (20.5-51.1); % Neutrophils 86.5 % (42.2-75.2); Absolute Basophils 0.1 10^3/uL (0-0.2); Absolute Immature Granulocytes 0.1 10^3/uL (0-0.05); Absolute Monocytes 1.3 10^3/uL (0.1-0.6); Absolute Neutrophils 16.2 10^3/uL (1.4-6.5); Hematocrit 33.8 % (37.0-47.0); Mean Corp Hgb Conc. 32.5 g/dL (33.0-37.0); Mean Corpuscular Hgb 30.1 pg (27.0-31.0); Mean Corpuscular Volume 92.6 fL (81.0-99.0); Mean Platelet Volume 9.1 fL (7.4-10.4); Nucleated Red Blood Cells % 0 %; Platelet Count 296 10^3/uL (130-400); Red Blood Cell Count 3.65 10^6/uL (4.20-5.40); Red Cell Dist. Width 14.5 % (11.5-14.5); White Blood Cell Count 18.7 10^3/uL (4.8-10.8)
[2024-06-29 12:51] LABS: COVID-19 Antigen Negative (Negative)
[2024-06-29 12:54] LABS: ALT (SGPT) 15 U/L (0-35); AST (SGOT) 17 U/L (14-36); Albumin 4.2 g/dl (3.5-5.0); Alkaline Phosphatase 97 U/L (38-126); Blood Urea Nitrogen 45 mg/dl (7-17); Calcium 9.2 mg/dl (8.4-10.2); Carbon Dioxide 17 mmol/L (22-30); Chloride 111 mmol/L (98-107); Glucose 170 mg/dl (70-99); Potassium 4.4 mmol/L (3.5-5.1); Sodium 142 mmol/L (135-145); Total Bilirubin 0.5 mg/dl (0.2-1.3); Total Protein 7.4 g/dl (6.3-8.2); eGFR 22.56
[2024-06-29 15:10] VITALS: BP 137/52
--- NOTE | 2024-06-29 15:21 | ED.GENMED ---
History of Present Illness
General
Chief Complaint: Breathing Problem
Source: patient
Exam Limitations: none
Time Seen by Provider: 06/29/24 15:07
History of Present Illness
History of Present Illness:
58yoF with a history of coronary artery disease s/o atrial fibrillation,CABG, asthma, diet-controlled diabetes, remote history of PE no longer on anticoagulation presenting for evaluation of cough. Symptoms began last night. She reports a dry
cough, dyspnea, and right ear pain. She feels fatigued but denies any fevers or chills. No chest pain. She had some slight diarrhea yesterday but none so far today. No known sick contacts.
Past History
Past History
ED Past Medical History: HTN, NIDDM and Other ( morbid obesity, acute renal insufficiency, sciatica, heart failure, PE, A-fib, CAD)
ED Past Surgical History: Cholecystectomy and Gynecological (Hysteectomy)
Patient has exhibited threatening behavior?: No
Social History
Tobacco: Former smoker
Alcohol: None
Drug: None
Personal:
Living: with family
Employment: Employed (Desk job)
Family History
Family History: Other (Noncontributory)
Phy Exam
Physical Exam
Physical Exam:
Appears fatigued, non-toxic
General Physical Exam
General Presentation: no apparent distress
General Skin: warm and dry
General Habitus: normal
General Mental: alert
ENT Exam
ENT Exam: TM's normal, pharynx normal, neck supple and normocephalic
Cardiovascular Exam
Cardiovascular Exam: regular rate/rhythm
Pulmonary Exam
Pulmonary Exam: no respiratory distress, no rhonchi, no stridor, no wheezing and other (Bibasilar rales)
Neurological Exam
Neurological Exam: alert
[place] Coma Scale
Eye Opening: Spontaneous
Verbal Response: Oriented
Motor Response: Obeys Commands
GCS Total Score: 15
Skin Exam
Skin Exam: normal color and warm/dry
Psychiatric Exam
Psychiatric Exam: normal mood/affect
Scores
Heart Failure Risk
Heart Failure Risk Score: Not Applicable
Course
Orders/Labs/Results
Orders:
Orders
06/29/24 11:44
Electrocardiogram (*1) Urgent
Reason for Study: Shortness of Breath
EKG- Treatment ONCE
06/29/24 12:09
Chest [CR Chest - 2 Views ] Urgent
Comment:
Reason For Exam: SOB, cough
06/29/24 12:15
B-Hydroxybutyrate Urgent
Comment: ADD ON
COVID-19 Antigen Urgent
Source: Nasal Swab
Complete Blood Count/With Diff Urgent
Comprehensive Metabolic Panel Urgent
Influenza A+B Rapid Molecular Urgent
BUSHRA Source: Nasal Swab
Specimen Description:
06/29/24 15:[address] Non Medication Order As Directed
Physician Order: ambulatory pulse ox
06/29/24 15:20
Electrocardiogram (*1) Urgent
Reason for Study: Shortness of Breath
EKG- Treatment ONCE
06/29/24 16:02
Lactate Level [Lactic Acid] Urgent
Troponin I Urgent
Venous Blood Gas Urgent
%Oxygen/Room Air: room air
06/29/24 16:22
Add On- LAB Urgent
Tests Added?: BHB
06/29/24 16:54
LevoFLOXacin 750 MG/150 ML [Levaquin] 750 mg in 150 ml IV NOW
06/29/24 17:48
Admit/Transfer Patient As Directed
Co-Sign Provider:
Level of Care: Inpatient admission
Assign to:: Medical/Surgical
Physician / Group: Camacho
Diagnosis: sepsis due to PNA
Reason for Hospitalization: sepsis due to PNA
Expected length of stay greater than two midnights?: Yes
ELOS- Estimated Length of Stay in days: 3
I certify the patient meets the requirements for IP care: Yes
06/29/24 17:49
PRN Pain Medication Management As Directed
May give lesser potent ordered pain med per pt: Yes
preference::
Protocol:: Medication orders for pain may be administered in a
manner that supports deferring to patient preference
when the pt is:
- Requesting an ordered lesser potent pain medication.
Least to most potent pain medications are defined
as: acetaminophen < NSAID < tramadol < opioids
(morphine, oxycodone, hydromorphone).
- Requesting a lesser dose of the same medication IF
ORDERED.
- Requesting a less intrusive route of administration
if both routes are prescribed by the provider (PO <
IV).
06/29/24 17:51
Code Status As Directed
Resuscitation Status: Do not resuscitate
Reached after discussion with pt or family/Healthcare POA: Yes
DNR Bracelet Application ONCE
Abnormal Lab Results
06/29/24 06/29/24
12:15 16:02
WBC 18.7 H 10^3/uL
(4.8-10.8)
RBC 3.65 L 10^6/uL
(4.20-5.40)
Hgb 11.0 L g/dL
(12.0-16.0)
Hct 33.8 L %
(37.0-47.0)
MCHC 32.5 L g/dL
(33.0-37.0)
Abs Immat Gran (auto) 0.1 H 10^3/uL
(0-0.05)
Absolute Neuts (auto) 16.2 H 10^3/uL
(1.4-6.5)
Absolute Lymphs (auto) 1.0 L 10^3/uL
(1.2-3.4)
Absolute Monos (auto) 1.3 H 10^3/uL
(0.1-0.6)
Neutrophils % 86.5 H %
(42.2-75.2)
Lymphocytes % 5.6 L %
(20.5-51.1)
VBG pH 7.28 L
(7.32-7.43)
VBG pO2 52 H mmHg
(30-50)
VBG HCO3 20.2 L mmol/L
(22-27)
Chloride 111 H mmol/L
(98-107)
Carbon Dioxide 17 L mmol/L
(22-30)
BUN 45 H mg/dl
(7-17)
Creatinine 2.4 H mg/dL
(0.6-1.0)
Glucose 170 H mg/dl
(70-99)
B-Hydroxybutyrate 0.42 H mmol/L
(0.02-0.27)
06/29/24 12:15
06/29/24 12:15
Vital Signs
Initial and Last Documented VS:
Initial Vital Signs
Temp Pulse Resp BP Pulse Ox
98.6 F 95 20 149/69 95
06/29/24 12:06 06/29/24 12:06 06/29/24 12:06 06/29/24 12:06 06/29/24 12:06
Last Documented Vital Signs
Temp Pulse Resp BP Pulse Ox
98.6 F 91 16 137/52 92
06/29/24 12:06 06/29/24 16:00 06/29/24 15:30 06/29/24 15:10 06/29/24 15:30
MDM/Problems Addressed
Differential Diagnosis Includes:
58yoF here with SOB, cough, R ear pain, and fatigue x 1 day. Oxygen saturation 92% during initial exam. Rales noted on lung exam. No signs of respiratory distress. Differential diagnosis includes but is not limited to: Pneumonia, bronchitis, viral
illness
Initial ED plan: Workup obtained in triage. Chest x-ray shows findings concerning for pneumonia. White count is 18.7 and bicarb is 17. Creatinine 2.4 which is baseline. COVID/flu negative. Will add on VBG, lactate, beta hydroxybutyrate, and
troponin.
*EKG
Interpreted by ED Provider?: Yes
EKG Intrepretation Date: 06/29/24
Heart Rate: 97
Rate: normal
Rhythm: sinus
Jackson: normal axis
QRS Pattern: normal QRS
Ischemia: non-specific ST changes
*Critical Care Note
Total Time (30-74mins, 75-104mins- exclusive of procedures): Not Applicable
Update Note
Update Note:
Lactate within normal limits. Mild acidosis noted on VBG with a venous pH of 7.28. pCO2 is normal. Ambulatory pulse ox performed. Patient was 92% with ambulation but upon return to the stretcher, she dropped to 87%. IV Levaquin ordered and
patient admitted for further management.
ED Attending Note
-
Portions of this chart may have been created with voice recognition software.� Occasional wrong word or��sound alike� substitutions may have occurred due to the inherent limitations of voice recognition software.
Discharge Plan
Departure
Patient Disposition: Admit
Date of Disposition: 06/29/24
Time of Disposition: 16:56
Presentation/result/management discussed w/ accepting MD/DO: Hospitalist
Discharge Problem:
Pneumonia
Interventions
Interventions:
*Risk Screen - Suicide Last Done: 06/29/24 12:06
*General Assessment Last Done: 06/29/24 12:06
*ED COVID-19 Vaccine History Last Done: 06/29/24 16:11
[2024-06-29 15:51] VITALS: BMI 33.5
[2024-06-29 16:12] LABS: Venous Blood Gas B.E. -6.3 mmol/L (-4 to +4); Venous Blood Gas HCO3 20.2 mmol/L (22-27); Venous Blood Gas O2 Sat % 87.2 %; Venous Blood Gas pCO2 43 mmHg (35-48); Venous Blood Gas pH 7.28 (7.32-7.43); Venous Blood Gas pO2 52 mmHg (30-50)
[2024-06-29 16:22] LABS: Lactic Acid 0.8 mmol/L (0.7-2.0)
[2024-06-29 16:35] LABS: Troponin I < 0.012 ng/ml
[2024-06-29 17:00] VITALS: BP 140/71
[2024-06-29 17:01] LABS: B-Hydroxybutyrate 0.42 mmol/L (0.02-0.27)
--- NOTE | 2024-06-29 17:25 | HPS.HSE ---
Family Physician
-
Family Physician: Beverly Art
Chief Complaint
-
Cough and shortness of breath
History of Present Illness
58 F with PMHx:
CKD4
DM2
Obesity due to excess calories
Paroxysmal atrial fibrillation
Chronic metabolic acidosis on oral bicarb at home
CAD s/p CABG x 4 at [facility] October 2022
h/o cervical spine surgery at [facility] May 2023
Nonischemic cardiomyopathy with preserved/recovered EF
Mild to moderate AR.
Anemia of chronic disease
Essential hypertension
Dyslipidemia
COPD
h/o DVT, currently not on anticoagulation
Albuminuria
Anxiety/depression
who p/w CC shortness of breath and cough. Patient reports yesterday she began having relentless dry cough. There is no sputum production. She had associated shortness of breath. Overnight and this morning she has some diarrhea. Denies any chest
pain, nausea, vomiting. Denies any headache, neck stiffness, fever, or any other acute symptoms. In the ER chest x-ray showed evidence of pneumonia. The patient had a leukocytosis. She desaturated to 87% with ambulation. She was referred for
admission.
Medical History
Past Medical History
Past Medical History: Reports Other (CKD4 DM2 Obesity due to excess calories Paroxysmal atrial fibrillation Chronic metabolic acidosis on oral bicarb at home CAD s/p CABG x 4 at [facility] October 2022 h/o cervical spine surgery at [facility] May 2023
Nonischemic cardiomyopathy with preserved/recovered EF Mild to moderate AR. Anemia of chron)
Past Surgical History: Reports Other (N/A)
Social History
Tobacco: Non-smoker
Alcohol: None
Drug: None
Family History
Family History: Not pertinent
Allergies / Home Medications
Allergies reflects when Allergies were last updated in [facility].
Home Medications with original date entered in [facility]
Allergy/Medication List:
Allergies
Allergy/AdvReac Type Severity Reaction Status Date / Time
cephalexin Allergy Swelling Verified 06/29/24 12:06
lisinopril Allergy Unknown Verified 06/29/24 12:06
metformin Allergy GI UPSET Verified 06/29/24 12:06
Home Medications
ascorbic acid (vitamin C) 500 mg tablet (Vitamin C) 500 mg PO DAILY Supplement 02/18/21
ferrous sulfate 325 mg (65 mg iron) tablet (FeroSul) 325 mg PO NOON Supplement 02/18/21
carvedilol 3.125 mg tablet 3.125 mg PO BID Heart Disease/Condition 09/20/22
melatonin 5 mg tablet 5 mg PO HS Sleep 11/19/22
aspirin 81 mg tablet,delayed release 81 mg PO DAILY #90 tabs 11/27/22
atorvastatin 80 mg tablet 80 mg PO HS #90 tabs 11/27/22
clopidogrel 75 mg tablet 75 mg PO DAILY #90 tabs 11/27/22
furosemide 40 mg tablet 40 mg PO DAILY #90 tabs 11/27/22
guaifenesin 600 mg tablet, extended release 12 hr 600 mg PO BID #180 tabs 11/27/22
multivitamin with folic acid 400 mcg tablet (Tab-A-Prashant) 1 tab PO NOON #90 tabs 11/27/22
cholecalciferol (vitamin D3) 25 mcg (1,000 unit) tablet (Vitamin D3) 25 mcg PO DAILY #90 tabs 11/28/22
azithromycin 250 mg tablet 250 mg PO Q48H Infection 08/15/23
benzonatate 100 mg capsule 100 mg PO BIDPRN PRN cough 08/15/23
bupropion HCl 150 mg 24 hr tablet, extended release (Wellbutrin XL) 150 mg PO BID Depression 08/15/23
escitalopram oxalate 5 mg tablet (Lexapro) 5 mg PO DAILY Depression 08/15/23
finerenone 10 mg tablet (Kerendia) 10 mg PO DAILY Kidney and diabetes 08/15/23
fluticasone fur. 100 mcg-umeclid 62.5 mcg-vilant 25 mcg inhalat.powder (Trelegy Ellipta) 1 inh inhalation R DAILY Lung/Breathing Issues 08/15/23
sodium bicarbonate 325 mg tablet 325 mg PO DAILY Electrolyte Repletion 08/15/23
trazodone 50 mg tablet 100 mg PO HS Sleep 08/15/23
famotidine 20 mg tablet 20 mg PO Q48H #0 tabs 08/17/23
potassium chloride 20 mEq tablet,extended release 20 meq PO DAILY #3 tabs 08/17/23
Review of Systems
-
History Source: Patient
A 12 point ROS was completed and negative except as noted: Yes
Physical Exam
Vital Signs
Vital Signs
Temp Pulse Resp BP Pulse Ox
98.6 F 91 16 137/52 92
06/29/24 12:06 06/29/24 16:00 06/29/24 15:30 06/29/24 15:10 06/29/24 15:30
Physical Exam
General: Other (.)
Laboratory Results
-
06/29/24 12:15
06/29/24 12:15
Laboratory Results
Lactic Acid 0.8 mmol/L (0.7-2.0) 06/29/24 16:02
Total Bilirubin 0.5 mg/dl (0.2-1.3) 06/29/24 12:15
AST 17 U/L (14-36) 06/29/24 12:15
ALT 15 U/L (0-35) 06/29/24 12:15
Alkaline Phosphatase 97 U/L (38-126) 06/29/24 12:15
Troponin I < 0.012 ng/ml 06/29/24 16:02
Impression/Plan
-
Gen: NAD, AAOx3.
Eyes: EOMI, PERRLA, no scleral icterus.
Neck: supple.
CV: RRR, +S1/S2, no m/r/g.
Resp: CTAB, no rales, wheezes, or rhonchi.
Abd: +BS, soft, NT, ND
Skin: No rashes.
Neuro: CN 2-12 intact, non-focal.
Psych: Normal mood and affect.
CXR: Parenchymal opacity in the left lower lobe appears slightly increased compared to examination of November 23, 2022.
Sepsis due to LLL PNA:
-COVID/Flu NEG
-leukocytosis with L-shift
-cont Levaquin started in the ER
-currently 92% RA. Desaturated with ambulation.
Other problems:
CKD4
DM2: SSI/accuchecks, check a1c
Obesity due to excess calories
Paroxysmal atrial fibrillation: Not on AC, cont BB
Chronic metabolic acidosis on oral bicarb at home
CAD s/p CABG x 4 at [facility] October 2022: cont ASA/Plavix/statin/BB
h/o cervical spine surgery at [facility] May 2023
Nonischemic cardiomyopathy with preserved/recovered EF
Mild to moderate AR
Anemia of chronic disease
Essential hypertension: cont Coreg
Dyslipidemia: cont statin
COPD: cont Trelegy
h/o DVT, currently not on anticoagulation
Albuminuria
Anxiety/depression: cont Wellbutrin/Lexapro
DNR - confirmed with the pt in the ER
Heparin
[2024-06-29 18:00] VITALS: BP 151/56
[2024-06-29] MEDS: LEVAQUIN 150 IV (18:41)
--- NOTE | 2024-06-29 18:51 | W.PN.UPDATE ---
Update Note
Progress Note Update
Informed by RN that patient has changed her mind and wants to be full code.
Code status changed to full code.
[2024-06-29 21:30] VITALS: BP 127/63; BMI 34.1
[2024-06-29 21:33] LABS: Glucose - Point of Care 122 mg/dl (70-99)
[2024-06-29] MEDS: LIPITOR 80 MG PO (22:31)
[2024-06-29] MEDS: WELLBUTRIN XL (24 hour extended release) 150 MG PO (22:31)
[2024-06-29] MEDS: MUCINEX 600 MG PO (22:31)
[2024-06-29] MEDS: COREG 3.125 MG PO (22:32)
[2024-06-29] MEDS: SODIUM BICARBONATE 650 MG PO (22:32)
[2024-06-29] MEDS: TYLENOL 650 MG PO (23:36)
[2024-06-29] MEDS: HEPARIN 5000 UNITS SC (23:38)
[2024-06-29] MEDS: DESYREL 150 MG PO (23:42)
[2024-06-29] MEDS: TESSALON PERLES 100 MG PO (23:49)
[2024-06-29 23:55] VITALS: BP 120/58
[2024-06-30] MEDS: LEXAPRO 5 MG PO ×2 (00:05→21:30)
[2024-06-30 07:41] LABS: % Basophils 0.3 % (0-2); % Eosinophils 0.2 % (0-6); % Immature Granulocytes 0.6 % (0-0.5); % Lymphocytes 9.1 % (20.5-51.1); % Monocytes 10.9 % (1.7-9.3); % Neutrophils 78.9 % (42.2-75.2); Absolute Immature Granulocytes 0.1 10^3/uL (0-0.05); Absolute Lymphocytes 1.1 10^3/uL (1.2-3.4); Absolute Monocytes 1.4 10^3/uL (0.1-0.6); Absolute Neutrophils 9.9 10^3/uL (1.4-6.5); Hematocrit 33.4 % (37.0-47.0); Hemoglobin 10.5 g/dL (12.0-16.0); Mean Corp Hgb Conc. 31.4 g/dL (33.0-37.0); Mean Corpuscular Hgb 28.8 pg (27.0-31.0); Mean Corpuscular Volume 91.8 fL (81.0-99.0); Mean Platelet Volume 9.8 fL (7.4-10.4); Nucleated Red Blood Cells % 0 %; Platelet Count 288 10^3/uL (130-400); Red Blood Cell Count 3.64 10^6/uL (4.20-5.40); Red Cell Dist. Width 14.5 % (11.5-14.5); White Blood Cell Count 12.6 10^3/uL (4.8-10.8)
[2024-06-30 07:50] LABS: Blood Urea Nitrogen 42 mg/dl (7-17); Calcium 9.1 mg/dl (8.4-10.2); Carbon Dioxide 15 mmol/L (22-30); Chloride 116 mmol/L (98-107); Estimated Creatinine Clearance 26 ml/min; Glucose 130 mg/dl (70-99); Potassium 4.2 mmol/L (3.5-5.1); Sodium 143 mmol/L (135-145); eGFR 22.56
[2024-06-30] MEDS: SYMBICORT 80/4.5 MCG INHALER 2 PUFF INH ×2 (08:15→19:27)
[2024-06-30] MEDS: SPIRIVA RESPIMAT 2.5 MCG 2 PUFF INH (08:15)
[2024-06-30 08:23] VITALS: BP 127/56
[2024-06-30 08:37] LABS: Glucose - Point of Care 158 mg/dl (70-99)
[2024-06-30 08:47] LABS: Hepatitis C Antibody Negative (Negative)
[2024-06-30] MEDS: MUCINEX 600 MG PO ×2 (08:53→20:06)
[2024-06-30] MEDS: COREG 3.125 MG PO ×2 (08:53→20:08)
[2024-06-30] MEDS: WELLBUTRIN XL (24 hour extended release) 150 MG PO ×2 (08:53→20:06)
[2024-06-30] MEDS: ASPIR LOW (ENTERIC COATED) 81 MG PO (08:53)
[2024-06-30] MEDS: HEPARIN 5000 UNITS SC ×2 (08:54→17:00)
[2024-06-30] MEDS: SODIUM BICARBONATE 650 MG PO (08:54)
[2024-06-30] MEDS: NOVOLOG FLEXPEN-MODERATE RESISTANCE 1 UNITS SC ×3 (09:02→17:01)
[2024-06-30 12:02] LABS: Glucose - Point of Care 190 mg/dl (70-99)
--- NOTE | 2024-06-30 13:10 | W.PN.HOSP.TC ---
Today's Communication/Plan
-
see plan
Assessment / Plan
Assessment / Plan
Gen: NAD, AAOx3.
Eyes: EOMI, PERRLA, no scleral icterus.
Neck: supple.
CV: remains RRR, +S1/S2, no m/r/g.
Resp: remains CTAB, no rales, wheezes, or rhonchi.
Skin: No rashes.
Neuro: CN 2-12 intact, non-focal.
Psych: Normal mood and affect.
CXR: Parenchymal opacity in the left lower lobe appears slightly increased compared to examination of November 23, 2022.
Sepsis due to LLL PNA:
-currently 92% RA. Desaturated with ambulation.
-COVID/Flu NEG
-leukocytosis with L-shift
-cont Levaquin
Chronically low Bicarb:
-increase NaHCO3 to 1300mg TID
-check HCO3 in AM, if no improvement will place on bicarb gtt
Other problems:
CKD4
DM2: a1c 6.0%, SSI/accuchecks
Obesity due to excess calories
Paroxysmal atrial fibrillation: Not on AC (see's Dr. Barroso, only on ASA 81), cont BB
Chronic metabolic acidosis on oral bicarb at home
CAD s/p CABG x 4 at [facility] October 2022: cont ASA/Plavix/statin/BB
h/o cervical spine surgery at [facility] May 2023
Nonischemic cardiomyopathy with preserved/recovered EF
Mild to moderate AR
Anemia of chronic disease
Essential hypertension: cont Coreg
Dyslipidemia: cont statin
COPD: cont Trelegy
h/o DVT, currently not on anticoagulation
Albuminuria
Anxiety/depression: cont Wellbutrin/Lexapro
FULL
Heparin
Anticipated Discharge: 24 - 48 hours
Subjective/Interval History
-
Date of Service: June 30, 2024
Objective Data
-
Labs:
Laboratory Results
06/30/24
06:36
WBC 12.6 H
Hgb 10.5 L
Hct 33.4 L
Plt Count 288
Sodium 143
Potassium 4.2
Chloride 116 H
Carbon Dioxide 15 L
BUN 42 H
Creatinine 2.4 H
Glucose 130 H
Calcium 9.1
Vital Signs:
Vital Signs
Temp Pulse Resp BP Pulse Ox
98.1 F 88 20 127/56 94
06/30/24 08:23 06/30/24 08:53 06/30/24 08:23 06/30/24 08:53 06/30/24 08:23
--- NOTE | 2024-06-30 13:22 | PTCARENOTE ---
Assumed care of pt from previous nurse. pt denies pain. pt conts with moist productive cough, not coughing up any sputum. On 2L's sating at 94%. Pt lungs are diminished. pt call hernandez is within reach, pt rings angel luis. will cont to monitor.
[2024-06-30 15:31] VITALS: BP 123/57
--- NOTE | 2024-06-30 16:56 | CM ---
Met with patient to obtain information for assessment. Patient stated that she lives with her sister and nephew in a single, two story home with 5 steps to enter. She described herself as independent with her ADLs, personal care, dressing and
bathing. She is can cook, clean, do dietary aide and laundry. She has a walker but does not use it. She has never had VN services. Never been to a SNF.
Patient has a prescription plan and uses, [facility] [place] for all of her medications.
His PCP is, Beverly Art.
Plan: Case management will continue to follow and assist with discharge planning. Home no needs.
[2024-06-30] MEDS: SODIUM BICARBONATE 1300 MG PO ×2 (17:00→21:30)
[2024-06-30 17:03] LABS: Glucose - Point of Care 159 mg/dl (70-99)
[2024-06-30] MEDS: TESSALON PERLES 100 MG PO (20:06)
[2024-06-30] MEDS: DESYREL 150 MG PO (21:30)
[2024-06-30] MEDS: LIPITOR 80 MG PO (21:30)
[2024-06-30 21:38] LABS: Glucose - Point of Care 222 mg/dl (70-99)
[2024-06-30 21:45] VITALS: O2SAT 89; O2SAT 94
[2024-06-30 23:55] VITALS: BP 145/73
[2024-07-01] MEDS: HEPARIN 5000 UNITS SC ×2 (00:47→09:04)
[2024-07-01] MEDS: ROBITUSSIN 100 MG PO (01:21)
[2024-07-01 06:47] LABS: % Basophils 0.3 % (0-2); % Eosinophils 0.5 % (0-6); % Lymphocytes 14.3 % (20.5-51.1); % Monocytes 15.1 % (1.7-9.3); % Neutrophils 68.8 % (42.2-75.2); Absolute Eosinophils 0.1 10^3/uL (0-0.7); Absolute Immature Granulocytes 0.1 10^3/uL (0-0.05); Absolute Lymphocytes 1.3 10^3/uL (1.2-3.4); Absolute Monocytes 1.4 10^3/uL (0.1-0.6); Absolute Neutrophils 6.4 10^3/uL (1.4-6.5); Hematocrit 31.1 % (37.0-47.0); Mean Corp Hgb Conc. 32.2 g/dL (33.0-37.0); Mean Corpuscular Hgb 29.2 pg (27.0-31.0); Mean Corpuscular Volume 90.7 fL (81.0-99.0); Mean Platelet Volume 9.5 fL (7.4-10.4); Nucleated Red Blood Cells % 0 %; Platelet Count 280 10^3/uL (130-400); Red Blood Cell Count 3.43 10^6/uL (4.20-5.40); Red Cell Dist. Width 14.4 % (11.5-14.5); White Blood Cell Count 9.3 10^3/uL (4.8-10.8)
[2024-07-01 07:14] LABS: Blood Urea Nitrogen 49 mg/dl (7-17); Calcium 9.2 mg/dl (8.4-10.2); Carbon Dioxide 20 mmol/L (22-30); Chloride 115 mmol/L (98-107); Estimated Creatinine Clearance 25 ml/min; Glucose 137 mg/dl (70-99); Potassium 3.7 mmol/L (3.5-5.1); Sodium 143 mmol/L (135-145); eGFR 21.48
[2024-07-01 07:15] VITALS: BP 130/63
[2024-07-01] MEDS: SYMBICORT 80/4.5 MCG INHALER 2 PUFF INH (07:41)
[2024-07-01] MEDS: SPIRIVA RESPIMAT 2.5 MCG 2 PUFF INH (07:41)
[2024-07-01 08:17] LABS: Glucose - Point of Care 168 mg/dl (70-99)
[2024-07-01] MEDS: MUCINEX 600 MG PO (09:03)
[2024-07-01] MEDS: WELLBUTRIN XL (24 hour extended release) 150 MG PO (09:03)
[2024-07-01] MEDS: SODIUM BICARBONATE 1300 MG PO ×2 (09:03→15:17)
[2024-07-01] MEDS: ASPIR LOW (ENTERIC COATED) 81 MG PO (09:03)
[2024-07-01] MEDS: COREG 3.125 MG PO (09:03)
[2024-07-01] MEDS: NOVOLOG FLEXPEN-MODERATE RESISTANCE 1 UNITS SC (09:04)
[2024-07-01 11:11] LABS: Glucose - Point of Care 260 mg/dl (70-99)
--- NOTE | 2024-07-01 12:18 | W.PN.HOSP.TC ---
Today's Communication/Plan
-
d/c
Assessment / Plan
Assessment / Plan
Gen: remains NAD, AAOx3.
Eyes: EOMI, PERRLA, no scleral icterus.
Neck: supple.
CV: continues to remain RRR, +S1/S2, no m/r/g.
Resp: continues to remain CTAB, no rales, wheezes, or rhonchi.
Skin: No rashes.
Neuro: CN 2-12 intact, non-focal.
Psych: Normal mood and affect.
CXR: Parenchymal opacity in the left lower lobe appears slightly increased compared to examination of November 23, 2022.
Sepsis due to LLL PNA:
-currently 92% RA. Desaturated with ambulation.
-COVID/Flu NEG
-leukocytosis with L-shift, now resolved
-cont Levaquin to complete 5 days total
Chronically low Bicarb:
-NaHCO3 increased to 1300mg TID with improvement in HCO3-
-d/c on 650mg TID
Other problems:
CKD4
DM2: a1c 6.0%, SSI/accuchecks
Obesity due to excess calories
Paroxysmal atrial fibrillation: Not on AC (see's Dr. Barroso, only on ASA 81), cont BB
Chronic metabolic acidosis on oral bicarb at home
CAD s/p CABG x 4 at [facility] October 2022: cont ASA/Plavix/statin/BB
h/o cervical spine surgery at [facility] May 2023
Nonischemic cardiomyopathy with preserved/recovered EF
Mild to moderate AR
Anemia of chronic disease
Essential hypertension: cont Coreg
Dyslipidemia: cont statin
COPD: cont Trelegy
h/o DVT, currently not on anticoagulation
Albuminuria
Anxiety/depression: cont Wellbutrin/Lexapro
FULL/Heparin
Medically cleared for discharge. Case management aware.
Total time spent on d/c = 34 min. This included today's physical exam, progress note, review of laboratory and diagnostic data, preparation of discharge documents and prescriptions, and discussions about the pt's hospital course and discharge plan
with the patient and other biomedical technician involved in the patient's care.
Anticipated Discharge: Today
Subjective/Interval History
-
Date of Service: July 01, 2024
No new complaints.
Objective Data
-
Labs:
Laboratory Results
07/01/24
06:25
WBC 9.3
Hgb 10.0 L
Hct 31.1 L
Plt Count 280
Sodium 143
Potassium 3.7
Chloride 115 H
Carbon Dioxide 20 L
BUN 49 H
Creatinine 2.5 H
Glucose 137 H
Calcium 9.2
Vital Signs:
Vital Signs
Temp Pulse Resp BP Pulse Ox
98.7 F 86 16 130/63 92
07/01/24 07:15 07/01/24 09:03 07/01/24 07:44 07/01/24 09:03 07/01/24 07:44
I&O
06/30/24 07/01/24 07/02/24
06:59 06:59 06:59
Intake Total 480 / 480
Balance 480 / 480
--- NOTE | 2024-07-01 13:19 | W.DCSUMMARY ---
Discharge Summary
Discharge Data
Date of Admission: 06/29/24
Date of Discharge: 07/01/24
-
Pending Results: No
Hospital Course
Primary diagnoses:
Sepsis due to left lower lobe pneumonia
Chronic metabolic acidosis
Secondary diagnoses:
Chronic kidney disease stage IV
Type 2 diabetes mellitus
Obesity due to excess calories
Paroxysmal atrial fibrillation
Chronic metabolic acidosis on oral bicarb at home
Coronary artery s/p coronary artery bypass grafting x 4 at [facility] October 2022
h/o cervical spine surgery at [facility] May 2023
Nonischemic cardiomyopathy with preserved/recovered EF
Mild to moderate aortic regurgitation
Anemia of chronic disease
Essential hypertension
Dyslipidemia: cont statin
Chronic obstructive pulmonary disease, not in acute exacerbation
h/o deep vein thrombosis
Albuminuria
Anxiety
Depression
Consultants:
None
Imaging:
CXR: Parenchymal opacity in the left lower lobe appears slightly increased compared to examination of November 23, 2022.
Hospital course: 58-year-old female who presented 2 days ago with chief complaints of cough and shortness of breath. CXR above. In the ER the patient was desaturating with ambulation was referred for admission. She had a leukocytosis with left
shift. COVID and flu testing were negative. She was treated with Levaquin and had improvement in her symptoms. She is being discharged on Levaquin to complete a 5-day course. Of note the patient also has chronic metabolic acidosis. Her sodium
bicarb was increased.
Discharge Plan
-
Patient Disposition: Home (Routine Discharge)
Discharge Diagnosis/Procedures: Sepsis due to left lower lobe pneumonia
Condition: Good
Diet: Diabetic, Carb Controlled
Activity: No restrictions
Driving Restrictions: As prior to admission
Referrals:
Beverly Art CRNP [Family Provider] - in less than 1 week
Prescriptions:
New
atorvastatin 80 mg Tablet
80 mg PO HS Qty: 30 0RF
escitalopram oxalate 5 mg Tablet
5 mg PO HS Qty: 30 0RF
sodium bicarbonate 650 mg tablet
650 mg PO TID Qty: 90 0RF
levofloxacin 750 mg tablet
750 mg PO DAILY Qty: 1 0RF
Rx Instructions:
Take on 07/03/24
Continued
ascorbic acid (vitamin C) [Vitamin C] 500 MG tablet
500 mg PO DAILY
ferrous sulfate [FeroSul] 325 MG tablet
325 mg PO NOON
carvedilol 3.125 mg Tablet
3.125 mg PO BID
bupropion HCl [Wellbutrin XL] 150 mg Tablet Extended Release 24 Hr
150 mg PO BID
benzonatate 100 mg capsule
100 mg PO BID
azithromycin 250 mg Tablet
250 mg PO Q48H
Trelegy Ellipta 100-62.5-25 mcg Blister With Device
1 inh INHALATION R DAILY
trazodone 50 mg tablet
150 mg PO HS
Kerendia 10 mg Tablet
10 mg PO DAILY
famotidine 20 mg tablet
20 mg PO DAILY
melatonin 5 mg Tablet
5 mg PO HS
guaifenesin 600 mg Tablet Extended Release 12hr
600 mg PO BID Qty: 180 0RF
multivitamin with folic acid [Tab-A-Prashant] 400 mcg Tablet
1 tab PO NOON Qty: 90 0RF
aspirin 81 mg Tablet,Delayed Release (Dr/Ec)
81 mg PO DAILY Qty: 90 0RF
cholecalciferol (vitamin D3) [Vitamin D3] 25 mcg (1,000 unit) Tablet
25 mcg PO DAILY Qty: 90 0RF
Discontinued
sodium bicarbonate 325 mg Tablet
975 mg PO DAILY
atorvastatin [Lipitor] 20 mg Tablet
20 mg PO HS
escitalopram oxalate [Lexapro] 10 mg Tablet
10 mg PO DAILY
Discharge Orders:
Discharge Patient (As Directed); Ordered 07/01/24
Ordered By: Anant Sauer
Discharge Date and Time
Print Language: [place] CITIZ[place]
[2024-07-01] MEDS: LEVAQUIN 750 MG PO (13:39)
[2024-07-01] MEDS: NOVOLOG FLEXPEN-MODERATE RESISTANCE 5 UNITS SC (13:40)
[2024-07-01] MEDS: HEPARIN SC (15:15)
[2024-07-01 16:13] VITALS: BP 137/86
== END 2024-07-01 16:15 | disposition home or self-care (01) | DRG 871 ==
LOC: 4 EAST ACU 18:32
PROVIDERS: Emergency Medicine; Physician Assistant; ADMITTING PHYSICIAN Internal Medicine; EMERGENCY PHYSICIAN Emergency Medicine; FAMILY PHYSICIAN Nurse Practitioner Primary Care
DX: A41.9 Sepsis, unspecified organism (principal); J18.9 Pneumonia, unspecified organism; N18.4 Chronic kidney disease, stage 4 (severe); E87.22 Chronic metabolic acidosis; I13.0 Hypertensive heart and chronic kidney disease with heart failure and stage 1 through stage 4 chronic kidney disease, or unspecified chronic kidney disease; I42.8 Other cardiomyopathies; J44.0 Chronic obstructive pulmonary disease with (acute) lower respiratory infection; I50.9 Heart failure, unspecified; E11.22 Type 2 diabetes mellitus with diabetic chronic kidney disease; E66.01 Morbid (severe) obesity due to excess calories; I48.0 Paroxysmal atrial fibrillation; I25.10 Atherosclerotic heart disease of native coronary artery without angina pectoris; D63.1 Anemia in chronic kidney disease; E78.5 Hyperlipidemia, unspecified; F32.A Depression, unspecified; F41.9 Anxiety disorder, unspecified; Z11.52 Encounter for screening for COVID-19; Z68.34 Body mass index [BMI] 34.0-34.9, adult; Z79.899 Other long term (current) drug therapy; Z86.718 Personal history of other venous thrombosis and embolism; Z87.891 Personal history of nicotine dependence; Z95.1 Presence of aortocoronary bypass graft
CPT/HCPCS: 71046; 80048; 80053; 82010; 82805; 82962; 83036; 83605; 84484; 85025; 86803; 87502; 87811; 93005; 94640; 99285

== ENCOUNTER → 2024-07-08 14:25 | Outpatient (REF) | payer OTHER, SELFPAY | LOC: RAD 14:25 | PROVIDERS: ATTENDING PHYSICIAN Nurse Practitioner Gerontology; FAMILY PHYSICIAN Nurse Practitioner Primary Care | DX: J18.9 Pneumonia, unspecified organism (principal) | CPT/HCPCS: 71046 ==

== ENCOUNTER → 2024-07-15 16:49 | Outpatient (REF) | payer OTHER, SELFPAY | LOC: HWRAD 16:49 | PROVIDERS: ATTENDING PHYSICIAN Nurse Practitioner Primary Care | DX: I77.810 Thoracic aortic ectasia (principal); J18.9 Pneumonia, unspecified organism | CPT/HCPCS: 71250 ==

== ENCOUNTER → 2024-12-02 14:11 | Outpatient (REF) | payer OTHER, SELFPAY | LOC: HWRAD 14:11 | PROVIDERS: ATTENDING PHYSICIAN Nurse Practitioner Primary Care | DX: M17.0 Bilateral primary osteoarthritis of knee (principal) | CPT/HCPCS: 73564 ==

== ENCOUNTER → 2025-01-01 11:34 | Outpatient (REF) | payer OTHER, SELFPAY | LOC: HWRAD 11:34 | PROVIDERS: ATTENDING PHYSICIAN Internal Medicine Critical Care Medicine; FAMILY PHYSICIAN Nurse Practitioner Primary Care | DX: R91.8 Other nonspecific abnormal finding of lung field (principal) | CPT/HCPCS: 71250 ==

== ENCOUNTER → 2025-01-11 08:26 | Outpatient (REF) | payer OTHER, SELFPAY | LOC: HWRAD 08:26 | PROVIDERS: ATTENDING PHYSICIAN Nurse Practitioner Primary Care | DX: R91.8 Other nonspecific abnormal finding of lung field (principal) | CPT/HCPCS: 74176 ==

== ENCOUNTER → 2025-01-18 14:51 | Outpatient (REF) | payer OTHER, SELFPAY | LOC: RAD 14:51 | PROVIDERS: ATTENDING PHYSICIAN Internal Medicine; FAMILY PHYSICIAN Nurse Practitioner Primary Care | DX: R19.4 Change in bowel habit (principal) | CPT/HCPCS: 74018 ==

== ENCOUNTER → 2025-02-04 09:17 | Outpatient (REF) | payer OTHER, SELFPAY | LOC: HWRCS 09:17 | PROVIDERS: ATTENDING PHYSICIAN Internal Medicine; FAMILY PHYSICIAN Nurse Practitioner Primary Care | DX: I25.10 Atherosclerotic heart disease of native coronary artery without angina pectoris (principal); I50.32 Chronic diastolic (congestive) heart failure; I35.1 Nonrheumatic aortic (valve) insufficiency; I77.810 Thoracic aortic ectasia | CPT/HCPCS: 93306 ==

== ENCOUNTER 2025-02-16 06:21 | Day surgery (SDC) | payer OTHER, SELFPAY | END 2025-02-16 15:36 | disposition home or self-care (01) | LOC: GI 06:21 | PROVIDERS: ATTENDING PHYSICIAN Internal Medicine | DX: K52.9 Noninfective gastroenteritis and colitis, unspecified (principal); K57.30 Diverticulosis of large intestine without perforation or abscess without bleeding; K62.89 Other specified diseases of anus and rectum | CPT/HCPCS: 45380; 88305 ==